=== PATIENT | male | born 1940 | race Caucasian/White ===

== ENCOUNTER 2024-11-09 19:49 | Emergency (ER) | payer MEDICARE, SELFPAY ==
--- OUTSIDE RECORDS SUMMARY | 2024-11-09 19:51 | XMS_ITS | Encounter Summary ---
Author Organization [facility] Healthcare Address [address] [place] [address] Care Team Providers Care Senior Sql Server Dba Name Role Phone Ramos Carranza MD Primary Care Provider [phone] Encounter Details Date Type Department Care Team (Late st Contact Info) Description 07/26/2024 Documentation [facility] [address] [place] [address] Heather Day Social History Tobacco Use Types Packs/Day Years Used Date Smoking Tobacco: Former Alcohol Use Standard Drinks/Week Comments Yes 0 (1 standard drink = 0.6 oz pur e alcohol) RARE PHQ-2 Answer Date Recorded PHQ-2 Total Score (If total score is 3 or more points, staff should administer the PHQ-9) 0 07/03/2024 Personal Safety Answer Date Recorded Have you ever been in or are you currently in a harmful physical or emotional relationship or is someone making you feel afraid or unsafe? 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
--- OUTSIDE RECORDS SUMMARY | 2024-11-09 19:52 | XMS_ITS | Clinical Summary ---
Author Organization [facility] Address [address] [place] [address] Care Team Providers Care Sheetrock Applicator Name Role Phone Ramos Carranza MD Primary Care Provider [phone] Allergies No known active allergies Medications herbal drugs (COLON HERBAL CLEANSER ORAL) daily. 5 Active omega 5-gpe-yly-fish oil (FISH OIL) 1,000 mg (120 mg-180 mg) capsule fish oil capsules 5 Active raNITIdine (ZANTAC) 150 mg tablet TAKE 1 TABLET BY MOUTH ONCE A DAY 5 Active cholecalciferol (VITAMIN D3) 1,000 unit capsule 1,000 IU's daily 5 Active b complex vitamins tablet Take by mouth. Active cetirizine (ZyrTEC) 10 mg tablet Take 1 tablet (10 mg total) by mouth Active omega-3 fatty acids (LOVAZA) 1 gram capsule Take 1 capsule (1,000 mg total) by mouth Active omeprazole (PriLOSEC) 20 mg capsule Take 1 capsule (20 mg total) by mouth 0 Active selenium 200 mcg tablet Take 1 tablet (200 mcg total) by mouth Active zinc sulfate (ZINC-220) 220 (50) mg capsule Take 1 tablet by mouth. Active cyanocobalamin (Vitamin B-12) 1,000 mcg tabletIndications: Prevention of Vitamin B12 Deficiency Take 1 tablet (1,000 mcg total) by mouth daily 30 tablet 11 1 Active calcium carbonate (OS-DAYLIN) 750 mg (300 mg of elemental calcium) tablet,chewable Take by mouth daily as needed Active fexofenadine (MARK) 180 mg tablet Take 1 tablet (180 mg total) by mouth daily Active multivitamin tablet Take 1 tablet by mouth daily Active potassium 99 mg tablet Take by mouth Active senna (SENOKOT) 8.6 mg tablet Take 1 tablet by mouth 2 (two) times a day Active vitamin E (vitamin E) 400 unit capsule Take 1 capsule (400 Units total) by mouth daily Active tamsulosin (FLOMAX) 0.4 mg extended release capsuleIndications :Benign prostatic hyperplasia with lower urinary tract symptoms, symptom details unspecified Take 1 capsule (0.4 mg total) by mouth daily 90 capsule 2 3 Active carbidopa-levodopa (SINEMET) 25-100 mg per tabletIndications: Parkinson's disease (HCC) Take 1 tablet by mouth once daily 90 tablet 3 4 Active carbidopa-levodopa CR (SINEMET CR) 25-100 mg per CR tablet Take 1 tablet by mouth nightly 90 tablet 3 4 Active acetaminophen 500 mg capsuleIndications :Pain Take 2 capsules (1,000 mg total) by mouth every 6 (six) hours 4 Active gabapentin (NEURONTIN) 300 mg capsule Take 1 capsule (300 mg total) by mouth 2 (two) times a day 4 07/26/20 25 Active methocarbamoL (ROBAXIN) 750 mg tablet Take 1 tablet (750 mg total) by mouth 3 (three) times a day 4 Active lidocaine (ASPERCREME) 4 % adhesive patch,medicated Place 1 patch on the skin daily 4 Active oxyCODONE (ROXICODONE) 5 mg immediate release tabletIndications: Pain Take 0.5 tablets (2.5 mg total) by mouth every 4 (four) hours as needed for pain 4 Active carvediloL (COREG) 3.125 mg tabletIndications: Chronic systolic congestive heart failure (HCC) Take 1 tablet (3.125 mg total) by mouth 2 (two) times a day with meals 120 tablet 2 4 02/14/20 25 Active spironolactone (ALDACTONE) 25 mg tablet Take 1 tablet (25 mg total) by mouth daily 60 tablet 2 4 02/14/20 25 Active blood-glucose meter miscIndications:Un controlled type 2 diabetes mellitus with hyperglycemia (HCC) Use to monitor blood sugars as directed twice daily 1 each 4 Active lancets 33 gauge miscIndications:Un controlled type 2 diabetes mellitus with hyperglycemia (HCC) Use as directed twice daily 200 each 4 Active blood glucose diagnostic (glucose blood) stripIndications:U ncontrolled type 2 diabetes mellitus with hyperglycemia (HCC) Use as directed to check blood sugars twice daily 200 each 4 08/18/20 25 Active metFORMIN XR (GLUCOPHAGE XR) 500 mg 24 hr tabletIndications: Hypertension associated with diabetes (HCC) Take 1 tablet (500 mg total) by mouth 2 (two) times a day after breakfast and lunch 180 tablet 2 5 Active Active Problems Problem Noted Date Diagnosed Date Discharge planning issues 07/24/2024 Assessment & Plan (07/26/2024 12:36 PM WAXER): 07/24: pending syncope work up. Pain control, IS to 2L. Okay to transfer to the floor. Will need rehab when medically stable for discharge. Anticipate pt to be medically stable 07/25 vs 07/26 07/25 Holding discharge given ECHO results. Cardiology consulted. 07/26 Patient is medically stable for discharge, SW/CM updated. Discharge pending facility bed availability. Transferring to [facility] today. Treatment plan note [x] Fracture of multiple ribs of left side 4 Assessment & Plan (07/26/2024 12:32 PM WAXER): #L anterior 4-6 rib fractures - pulm hygiene, IS - pain control - PT/OT 07/26 Respiration unlabored, no oxygen, no SOB. Will follow up in [facility] with CXR- ordered at discharge They were given the decision to go to his PCP Dr. Carranza for evaluation and CXR instead of coming to [facility]. They were asked to call and cancel appointment if going to PCP. Peripheral neuropathy 07/22/2024 Assessment & Plan (07/22/2024 11:49 AM WAXER): Longstanding peripheral neuropathy, 2/2 poorly controlled diabetes BPH (benign prostatic hyperplasia) 07/22/2024 Assessment & Plan (07/25/2024 1:05 PM WAXER): - On flomax at home, dc'd - Started on terazosin 07/25 voiding without difficulty. Nasal bone fracture 07/22/2024 Assessment & Plan (07/25/2024 12:58 PM WAXER): - Minimally displaced fx of the nasal bones - ENT consulted --- Elevate HOB --- Nasal precautions ENT final recommendations: Seen for a orbital floor fracture. For two weeks: - Do not perform any heavy lifting (>10 lbs), and do not strain. Use stool softeners as needed. You may be prescribed these or obtain these over the counter at your local pharmacy. - Do NOT blow your nose. You may use nasal saline spray or ocean spray as needed. - Sneeze with your mouth open - Use tylenol 650 mg every 6 hours to help with pain. You can alternate between tylenol and ibuprofen if you need additional pain control Questions or concerns, [facility]: Call [phone] to make an appointment. Orbital floor fracture 07/22/2024 Assessment & Plan (07/25/2024 1:01 PM WAXER): - Ophtho to schedule patient for follow up in clinic - Schedulers aware; They will reach out to him after discharge to schedule an appointment. Fall, initial encounter 07/21/2024 Assessment & Plan (07/25/2024 1:04 PM WAXER): Has a history of multiple falls in the past. - Syncopal workup given unclear mechanism --- OSVS negative 07/24 --- TTE See above, LVEF 20% and markedly dilated LV with LVH --- Carotid Duplex negative CKD (chronic kidney disease) stage 3, GFR 30-59 ml/min 12/01/2023 Assessment & Plan (07/25/2024 1:05 PM WAXER): Cr 1.01 on arrival to ED - Baseline Cr 0.9 to 1.1 - 07/23: 1.14 07/25 sCr 1.0- baseline Dystrophia unguium 05/08/2019 Abnormal gait 02/28/2019 Heartburn 02/27/2019 Seasonal allergies 02/27/2019 Great toe pain 12/29/2017 Pain and swelling of ankle 12/29/2017 Venous insufficiency 12/06/2017 Chronic constipation 09/06/2017 Assessment & Plan (07/22/2024 12:01 PM WAXER): Home senna resumed Tendon injury 04/23/2017 Fall in home 04/21/2017 Pain in the shoulder 04/21/2017 Encounter for long-term (cur rent) use of high-risk medication 02/26/2016 History of total knee replacement 09/11/2015 Benign colonic polyp 09/10/2015 Colon cancer screening 06/25/2015 Gastroesophageal reflux disease 06/25/2015 HTN (hypertension), benign 06/25/2015 Assessment & Plan (07/26/2024 12:30 PM WAXER): - Home medications: irbesartan 150 mg, resumed -SBP < 100, placed back on hold ECHO: Markedly dilated LV with eccentric LV hypertrophy. LVEF visually estimated 20% with akinetic apical segments, inferoseptal, inferior strong. Normal RV systolic function. Normal LA. No significant valve disease. Unable to estimate PASP due to lack of adequate TR jet. Normal RA pressure. 07/25 Cardiology consulted for decreased EF. No prior ECHO's and no Cardiology prior to this admission. Given multiple syncopal falls Cardiology will make recommendations. Cardiology Recommendations: Patient has reduction in LVEF, however, GDMT would pose risks in this patient who is already mildly hypotensive with numerous falls at home. We have spoken to estiven Dominguez and discussed the risks of starting this medication. We will discuss with patient's ship surveyor (Dr. Ramos Carranza) who is also his PCP about a gradual introduction of GDMT/ischemic evaluation if patient attains recovery in terms of hypotension and falls. Recommendations: - Agree with holding irbesartan on discharge - Please limit polypharmacy for patient - Agree with pursuing further rehabilitation-transferring to [facility] Nephrolithiasis 06/25/2015 Obstructive sleep apnea syndrome 06/25/2015 Osteoarthritis 06/25/2015 Parkinsonism 06/25/2015 Assessment & Plan (07/22/2024 11:50 AM WAXER): - Home sinemet continued Peripheral nerve disease 06/25/2015 Restless legs syndrome (RLS) 06/25/2015 Spinal stenosis 06/25/2015 Chronic low back pain 05/14/2010 Overview (02/28/2018): Overview: Hyperlipidemia 05/14/2010 Resolved Problems Problem Noted Date Diagnosed Date Resolved Date Facial fracture 07/22/2024 07/22/2024 Encounters Date Type Department Care Team Description 09/29/2024 10:30 AM WAXER Office Visit [address] [phone] Ramos Carranza MD Essential hypertension (Primary Dx); Venous insufficiency; Benign prostatic hyperplasia, unspecified whether lower urinary tract symptoms present; History of total left knee replacement; Type 2 diabetes mellitus with diabetic nephropathy, without long-term current use of insulin (HCC); Hypertension associated with diabetes (HCC) 09/06/[address] [phone] Ramos Carranza MD Med rf WILMA (Gabapentin) 08/17/2024 9:30 AM WAXER Office Visit [address] [phone] Ramos Carranza MD Chronic systolic congestive heart failure (HCC) (Primary Dx); Need for pneumococcal vaccination; Uncontrolled type 2 diabetes mellitus with hyperglycemia (HCC); Elevated glucose 08/17/[address] [phone] Ramos Carranza MD Med rf WILMA (Glucometer) 08/16/[address] [place] [phone] Ramos Carranza MD rqst to elsie JOHNSON from Last 3 Months Immunizations Immunization Administration Dates Next Due Influenza, Quadrivalent, Hig h Dose, Preservative Free, Intrr 04/27/2020 Influenza, Trivalent, High D ose, Split, Preservative Free, Intramuscular 05/29/2019,05/17/2018,07/06/2017,09/08 Influenza, Trivalent, IM (MDV) 06/01/2016 Influenza, Unspecified 05/30/2024,05/17/2018 Pneumococcal Conjugate Pcv20 08/17/2024 Pneumococcal Polysaccharide PPV23 06/25/2015,05/2007 Tdap 07/21/2024 Surgical History Surgery Date Site/Laterality Comments KNEE SURGERY Medical History Medical History Date Comments Arthritis Gastric reflux Headache Kidney stone Peripheral neuropathy Scoliosis Sleep apnea Family History Medical History Relation Name Comments Cancer Brother Diabetes Brother Heart disease Brother Migraines Daughter Family history of migraine headaches - (Added by TW Conv) Diabetes Sister Relation Name Status Comments Brother Daughter Sister Social History Tobacco Use Types Packs/Day Years Used Date Smoking Tobacco: Former Tobacco Cessation:Counseling Given: Not Answered Alcohol Use Standard Drinks/Week Comments Yes 0 [...] on file Legal Sex Male 11:08 PM WAXER Gender Identity Male 05/03/2024 2:56 PM CDT Sexual Orientation Not on file Obstetrics History Last Filed Vital Signs Vital Sign Reading Time Taken Comments Blood Pressure 90/60 09/29/2024 10:17 AM WAXER Pulse 68 09/29/2024 10:17 AM WAXER Temperature 36.4 C (97.6 F) 08/17/2024 9:32 AM WAXER Respiratory Rate 16 07/26/2024 4:09 PM WAXER Oxygen Saturation 98% 09/29/2024 10:17 AM WAXER Inhaled Oxygen Concentration - - Weight 86.6 kg (191 lb) 09/29/2024 10:17 AM WAXER Height 179.1 cm (5' 10.5 ) 09/29/2024 10:17 AM C Body Mass Index 27.02 09/29/2024 10:17 AM WAXER Plan of Treatment Health Maintenance Due Date Last Done Comments Albumin Creatinine Ratio, Urine 1938 Dilated Eye Exam 1940 Foot Exam 1940 Hepatitis B Screening 02/20/1956 Zoster Vaccine (1 of 2) 02/20/1988 Hemoglobin A1C 02/15/2025 08/17/2024, 11/2023, 03/14/2024, Additional history exists Depression Screening 07/03/2025 07/03/2024, 06/30/20 23 Lipid Panel 07/03/2025 07/03/2024, 08/2022, 12/10/2016, Additional history exists Well Visit 65+ 07/03/2025 07/03/2024, 06/30/2023 Fall Risk Assessment 07/26/2025 07/26/2024, 07/03/2024, 06/30/2023 eGFR 08/07/2025 08/07/2024, 09/2023, 07/28/2024, Additional history exists DTaP/Tdap/Td Vaccine (2 - Td or Tdap) 07/21/2034 07/21/2024 Influenza Vaccine Completed 05/30/2024, , 05/29/2019, Additional history exists Pneumococcal vaccine 65+ Completed 024, 06/25/2015, 12/07/2006 Procedures Procedure Name Priority Date/Time Associated Diagnosis Comments POCT GLUCOSE Routine 08/17/2024 10:35 AM WAXER Elevated glucose POCT HEMOGLOBIN A1C Routine 08/17/2024 1 0:35 AM WAXER Uncontrolled type 2 diabetes mellitus with hyperglycemia (HCC) EGFR Routine 08/07/2024 4:19 PM WAXER LIPID PANEL Routine 07/03/2024 11:50 AM WAXER Hypertension associated with diabetes (HCC) from Last 3 Months or Most Recently Relevant to Health Maintenance Results * POCT hemoglobin A1c (08/17/2024 10:35 AM WAXER) Hemoglobin A1C, POC 7.3 4.0 - 5.6 % Blood 08/17/2024 10:3 5 AM WAXER Ramos Carranza MD POINT OF CARE TEST ORDERABLE S Final Result * POCT glucose (08/17/2024 10:35 AM WAXER) Glucose Blood, POC 120 mg/dL Blood 08/17/2024 10:3 5 AM WAXER Ramos Carranza MD POINT OF CARE TEST ORDERABLE S Final Result * eGFR (08/07/2024 4:19 PM WAXER) eGFR 65 >=60 mL/min/1. 73 m2 [facility] Comment: Interpretive Data Reference Interval Normal >/= 90 mL/min/1.73m2 Mildly decreased* 60 - 89 mL/min/1.73m2 Mildly to moderately decreased 45 - 59 mL/min/1.73m2 Moderately to severely decreased 30 - 44 mL/min/1.73m2 Severely decreased 15 - 29 mL/min/1.73m2 Kidney Failure < 15 mL/min/1.73m2 *Relative to young adult level Estimated glomerular filtration rate is determined by the 2020 CKD-EPI equation recommended by the National Kidney Foundation (A Unifying Approach to GFR Estimation: Recommendations of the NKF-ASK Task Force on Reassessing the Inclusion of Race in Diagnosing Kidney Disease, JASN 202). The CKD-EPI equation should not be used for patients with unstable renal function and has not been validated in children and those over 70. Current interpretive data was last reviewed 2021. Blood 08/07/2024 4:19 PM WAXER 08/07/2024 4:20 PM WAXER Jorge Rodríguez Jr., MD LAB BLOOD ORDERABLES Final Result [facility] [address] Department [place] [address] * Lipid panel (07/03/2024 11:50 AM WAXER) Cholesterol 179 30 - 199 mg/dL Comment: Interpretive Data Ages < or = 19 years Acceptable: <170 mg/dL Borderline high: 170-199 mg/dL High: >or= 200 mg/dL Ages > or = 20 years Desirable: <200 mg/dL Borderline high: 200-239 mg/dL High: >or= 240 mg/dL Literature References: 1. Expert Panel on Integrated Guidelines for Cardiovascular Health and Risk Reduction in Children and Adolescents. Pediatrics 2011;128:S213 2. NCEP Expert Panel. Circulation 2004;110:227 Current Interpretive Data was last revised on 2018. Triglycerides 95 <=149 mg/dL [facility] Comment: Interpretive Data Ages < or = 9 years Acceptable: <75 mg/dL Borderline high: 75-99 mg/dL High: >or= 100 mg/dL Ages 10 to 20 years Acceptable: <90 mg/dL Borderline high: 90-129 mg/dL High: >or= 130 mg/dL Ages > or = 20 years Desirable: <150 mg/dL Borderline high: 150-199 mg/dL High: 200-499 mg/dL Very high: >or= 499 mg/dL Literature References: 1. Expert Panel on Integrated Guidelines for Cardiovascular Health and Risk Reduction in Children and Adolescents. Pediatrics 2011;128:S213 2. NCEP Expert Panel. Circulation 2004;110:227 Current Interpretive Data was last revised on 2018. HDL 50 >=40 mg/dL [facility] Comment: Interpretive Data Ages < or = 19 years Acceptable: >45 mg/dL Borderline low: 40-45 mg/dL Low: <40 mg/dL Ages > or = 20 years Desirable: >or= 60 mg/dL Low: <40 mg/dL Literature References: 1. Expert Panel on Integrated Guidelines for Cardiovascular Health and Risk Reduction in Children and Adolescents. Pediatrics 2011;128:S213 2. NCEP Expert Panel. Circulation 2004;110:227 Current Interpretive Data was last revised on 2018. LDL, calculated 112 <=129 mg/dL [facility] Comment: Interpretive Data Ages < or = 19 years Acceptable: <110 mg/dL Borderline high: 110-129 mg/dL High: >or= 130 mg/dL Ages > or = 20 years Optimal: <100 mg/dL Near optimal: 100-129 mg/dL Borderline high: 130-159 mg/dL High: >160 mg/dL Calculated using the Galileo LDL-C estimating equation. This equation was implemented on 2024. Prior to this date LDL-C was estimated using the Friedewald equation. Literature References: 1. Expert Panel on Integrated Guidelines for Cardiovascular Health and Risk Reduction in Children and Adolescents. Pediatrics 2011;128:S213 2. NCEP Expert Panel. Circulation 2004;110:227 3. Galileo Rothman et al. NANCY Cardiol. 2019December 28;5(5):540-548. doi: 10.1001/[email or web address].2020.0013 Current Interpretive Data was last revised on 2024. Non-HDL Cholesterol 129 mg/dL [facility] Comment: Interpretive Data Ages < or = 19 years Acceptable: <120 mg/dL Borderline high: 120-144 mg/dL High: >145 mg/dL Ages > or = 20 years When triglycerides are >200 mg/dL, Non-HDL cholesterol is a secondary target of therapy with treatment goals that are 30 mg/dL greater than the LDL cholesterol target. Literature References: 1. Expert Panel on Integrated Guidelines for Cardiovascular Health and Risk Reduction in Children and Adolescents. Pediatrics 2011;128:S213 2. NCEP Expert Panel. Circulation 2004;110:227 Current Interpretive Data was last revised on 2018. Chol/HDL ratio 4 [facility] Blood 07/03/2024 11:5 0 AM WAXER 07/03/2024 3:12 PM WAXER us Ramos Carranza MD LAB BLOOD ORDERABLES Final R esult [facility] Department [place] [address] from Last 3 Months or Most Recently Relevant to Health Maintenance Insurance [facility] [place] [id number] COMMERCIAL GENERIC MEDICARE MEDICARE COMMERCIAL GENERIC MEDICARE COMMERCIAL GENERIC MEDICARE [employer] MEDICARE TRUST Advance Directives For more information, please contact: [phone] * Full Code (Latest Code Status on File) Date Activated Date Inactivated Comments 07/22/2024 2:00 AM 07/27/2024 12:57 AM Care Teams Sheetrock Applicator Relationship Specialty Start Date End Date Ramos Carranza MD [facility] [address] Jose M DELUNA [address] [place] [id number] PCP - General 12/10/16
--- OUTSIDE RECORDS SUMMARY | 2024-11-09 19:52 | XMS_ITS | Patient Health Summary ---
Author Organization [facility] Address [address] [place] [address] Care Team Providers Care Work Adjustment Instructor Name Role Phone Damaso Barrow DO Primary Care Provider [phone] Note from [facility],non-owned Affiliates and Associated Physician Practices is amultiple site organization consisting of ambulatory clinics and hospital sitesin [place], [place] and [place]. This disclosure is being madepursuant to the Care Everywhere program and may not contain all information available regarding this patient. Last updated 18.[facility] Allergies No known active allergies Medications * Be aware that medications may not be up to date on this document. Alwaysverify current medications with the patient. * fish oil/omega-3 fatty acids (FISH OIL) 1000 MG capsule Take 1000 mg by mouth 3 times daily with meals. * B COMPLEX PO Take by mouth. * cetirizine (ZYRTEC) 10 MG tablet Take 10 mg by mouth daily. * Selenium 200 MCG TABS Take 1 Tab by mouth daily. * Zinc 50 MG CAPS Take 1 Tab by mouth daily. * gabapentin (NEURONTIN) 300 MG capsule(Started 05/08/2010) Take by mouth. Take 2 capsules po BID. 3 refills left * lisinopril (PRINIVIL; ZESTRIL) 10 MG tablet(Started 05/08/2010) Take 1 Tab by mouth daily. 3 refills left * omeprazole (PRILOSEC) 20 MG capsule(Started 05/08/2010) Take 1 Cap by mouth daily before breakfast. 3 refills left * carbidopa-levodopa (SINEMET) 25-100 MG tablet(Started 05/08/2010) Take 1 Tab by mouth at bedtime. 3 refills left Active Problems Problem Noted Date Diagnosed Date HTN (hypertension), benign 05/14/2010 Hyperlipidemia 05/14/2010 Restless legs syndrome (RLS) 05/14/2010 Spinal stenosis 05/14/2010 Chronic low back pain 05/14/2010 Immunizations * PNEUMOCOCCAL PPSV23(Given 12/07/2006) Social History Tobacco Use Types Packs/Day Years Used Date Smoking Tobacco: Never Alcohol Use Standard Drinks/Week Comments No 0 (1 standard drink = 0.6 oz pur e alcohol) Sex and Gender Information Value Date Recorded Sex Assigned at Not on file Gender Identity Not on file Sexual Orientation Not on file Last Filed Vital Signs Vital Sign Reading Time Taken Comments Blood Pressure 144/86 11/06/2010 11:31 AM ASSISTED LIVING COORDINATOR Pulse 64 11/06/2010 11:31 AM ASSISTED LIVING COORDINATOR Temperature 36.3 C (97.4 F) 11/07/2009 11:03 AM ASSISTED LIVING COORDINATOR Respiratory Rate 12 11/06/2010 11:31 AM ASSISTED LIVING COORDINATOR Oxygen Saturation - - Inhaled Oxygen Concentration - - Weight 95.3 kg (210 lb) 11/06/2010 11:31 AM ASSISTED LIVING COORDINATOR Height 180.3 cm (5' 11 ) 11/06/2010 11:31 AM ASSISTED LIVING COORDINATOR Body Mass Index 29.29 11/06/2010 11:31 AM ASSISTED LIVING COORDINATOR Procedures * VITAMIN D 25-HYDROXY(Performed 11/06/2010) Performed for Vitamin D deficiency * LIPID PROFILE(Performed 11/06/2010) Performed for HTN (hypertension), benign * GENERAL HEALTH PANEL(Performed 11/06/2010) Performed for HTN (hypertension), benign * COMPREHENSIVE METABOLIC PANEL(Performed 05/08/2010) Performed for HTN (Hypertension), Benign * VITAMIN D 25-HYDROXY(Performed 05/08/2010) Performed for Vitamin D Deficiency * LIPID PROFILE(Performed 05/08/2010) Performed for Hyperlipidemia * VITAMIN D 25-HYDROXY(Performed 05/08/2010) Performed for Vitamin D Deficiency * LIPID PROFILE(Performed 11/07/2009) Performed for Health Maintenance Examination * VITAMIN D 25-HYDROXY(Performed 11/07/2009) Performed for Health Maintenance Examination * TSH(Performed 11/07/2009) Performed for Health Maintenance Examination * COMPREHENSIVE METABOLIC PANEL(Performed 11/07/2009) Performed for Health Maintenance Examination * CBC W AUTO DIFFERENTIAL(Performed 11/07/2009) Performed for Health Maintenance Examination * BASIC METABOLIC PANEL (CALCIUM TOTAL)(Performed 09/04/2008) Results * VITAMIN D 25-HYDROXY (11/06/2010 11:53 AM ASSISTED LIVING COORDINATOR) Only the most recent of4 resultswithin the time period is included. Vitamin D, 25 Hydroxy 37.4 32.0 - 100.0 ng/mL [facility] INSURANCE BILL Comment: Recent studies consider the lower limit of 32.0 ng/mL to be a threshold for optimal health. Clarence SINCLAIR. J Nutr. 2004;135(2):317-22. BLOOD SPECIMEN / Unknown 11/06/2010 11:53 AM ASSISTED LIVING COORDINATOR 11/06/2010 6:33 PM ASSISTED LIVING COORDINATOR Narrative Resulting Agency Comment [facility] [address] [id number] Damaso Barrow DO LAB - CHEMISTRY LOUIE FRANCISCO [facility] INSURANCE BILL * (ABNORMAL) GENERAL HEALTH PANEL (11/06/2010 11:52 AM ASSISTED LIVING COORDINATOR) Glucose 113(H) 65 - 99 mg/dL [facility] INSURANCE BILL BUN 21 8 - 27 mg/dL [facility] INSURANCE BILL Creatinine 1.09 0.76 - 1.27 mg/dL [facility] INSURANCE BILL eGFR by MDRD >59 >59 mL/min/1. 73 [facility] INSURANCE BILL eGFR by MDRD >59 >59 mL/min/1. 73 [facility] INSURANCE BILL Comment: Note: Persistent reduction for 3 months or more in an eGFR <60 mL/min/1.73 m2 defines CKD. Patients with eGFR values >/=60 mL/min/1.73 m2 may also have CKD if evidence of persistent proteinuria is present. Additional information may be found at www.kdoqi.org. BUN/Creatinine Ratio [facility] INSURANCE BILL Sodium 140 135 - 145 mmol/L [facility] INSURANCE BILL Potassium 4.5 3.5 - 5.2 mmol/L [facility] INSURANCE BILL Chloride 102 97 - 108 mmol/L [facility] INSURANCE BILL CO2 25 20 - 32 mmol/L [facility] INSURANCE BILL Calcium 9.5 8.6 - 10.2 mg/dL [facility] INSURANCE BILL Protein Total 7.5 6.0 - 8.5 g/dL [facility] INSURANCE BILL Albumin 4.6 3.5 - 4.8 g/dL [facility] INSURANCE BILL Globulin Total 2.9 1.5 - 4.5 g/dL [facility] INSURANCE BILL Albumin/Globulin Ratio 1.6 1.1 - 2.5 [facility] INSURANCE BILL Bilirubin Total 0.7 0.0 - 1.2 mg/dL [facility] INSURANCE BILL Alkaline Phosphatase 79 25 - 160 IU/L [facility] INSURANCE BILL AST 19 0 - 40 IU/L [facility] INSURANCE BILL ALT 19 0 - 55 IU/L [facility] INSURANCE BILL TSH 1.140 0.450 - 4.500 uIU/mL [facility] INSURANCE BILL WBC 6.5 4.0 - 10.5 x10E3/uL [facility] INSURANCE BILL RBC 4.81 4.10 - 5.60 x10E6/uL [facility] INSURANCE BILL Hemoglobin 15.7 12.5 - 17.0 g/dL [facility] INSURANCE BILL Hematocrit 45.5 36.0 - 50.0 % [facility] INSURANCE BILL MCV 95 80 - 98 fL [facility] INSURANCE BILL MCH 32.6 27.0 - 34.0 pg [facility] INSURANCE BILL MCHC 34.5 32.0 - 36.0 g/dL [facility] INSURANCE BILL RDW 13.4 11.7 - 15.0 % [facility] INSURANCE BILL Platelet Count 184 140 - 415 x10E3/uL [facility] INSURANCE BILL Granulocytes % 48 40 - 74 % [facility] INSURANCE BILL Lymphocytes % 38 14 - 46 % [facility] INSURANCE BILL Monocytes % 12 4 - 13 % [facility] INSURANCE BILL Eosinophils % 2 0 - 7 % [facility] INSURANCE BILL Basophils % 0 0 - 3 % [facility] INSURANCE BILL Immature Cells NOT NEEDED [facility] INSURANCE BILL Comment:Ancillary determined the test is not needed Granulocytes Absolute 3.1 1.8 - 7.8 x10E3/uL [facility] INSURANCE BILL Lymphocytes Absolute 2.5 0.7 - 4.5 x10E3/uL [facility] INSURANCE BILL Monocytes Absolute 0.8 0.1 - 1.0 x10E3/uL [facility] INSURANCE BILL Eosinophils Absolute 0.1 0.0 - 0.4 x10E3/uL [facility] INSURANCE BILL Basophils Absolute 0.0 0.0 - 0.2 x10E3/uL [facility] INSURANCE BILL Immature Granulocytes 0 0 - 1 % [facility] INSURANCE BILL Immature Granulocytes Absolute 0.0 0.0 - 0.1 x10E3/uL [facility] INSURANCE BILL nRBC NOT NEEDED [facility] INSURANCE BILL Comment:Ancillary determined the test is not needed Comment Hematology NOT NEEDED [facility] INSURANCE BILL Comment:Ancillary determined the test is not needed BLOOD SPECIMEN / Unknown 11/06/2010 11:52 AM ASSISTED LIVING COORDINATOR 11/06/2010 6:43 PM ASSISTED LIVING COORDINATOR Narrative Resulting Agency Comment [facility] [address] [facility] [phone] [facility] LAB - CHEMISTRY [facility] Performing Organization Address [facility] de Phone Number [facility] INSURANCE BILL * (ABNORMAL) LIPID PROFILE (11/06/2010 11:52 AM ASSISTED LIVING COORDINATOR) Only the most recent of3 resultswithin the time period is included. Cholesterol 221(H) 100 - 199 mg/dL [facility] INSURANCE BILL Triglycerides 165(H) 0 - 149 mg/dL [facility] INSURANCE BILL HDL Cholesterol 49 >39 mg/dL [facility] INSURANCE BILL Comment: According to ATP-III Guidelines, HDL-C >59 mg/dL is considered a negative risk factor for CHD. VLDL Calculated 33 5 - 40 mg/dL [facility] INSURANCE BILL LDL Calculated 139(H) 0 - 99 mg/dL [facility] INSURANCE BILL BLOOD SPECIMEN / Unknown 11/06/2010 11:52 AM ASSISTED LIVING COORDINATOR 11/06/2010 6:43 PM ASSISTED LIVING COORDINATOR Narrative Resulting Agency Comment [facility] [address] [phone] [facility] DO LAB - CHEMISTRY [employer] Performing Organization Address [facility] Co de Phone Number [facility] INSURANCE BILL * COMPREHENSIVE METABOLIC PANEL (05/08/2010 12:05 PM CDT) Only the most recent of2 resultswithin the time period is included. Glucose 92 65 - 99 mg/dL [facility] INSURANCE BILL BUN 23 5 - 26 mg/dL [facility] INSURANCE BILL Creatinine 1.01 0.76 - 1.27 mg/dL [facility] INSURANCE BILL eGFR by MDRD >59 >59 mL/min/1.7 3 [facility] INSURANCE BILL eGFR by MDRD >59 >59 mL/min/1.7 3 [facility] INSURANCE BILL Comment: Note: Persistent reduction for 3 months or more in an eGFR <60 mL/min/1.73 m2 defines CKD. Patients with eGFR values >/=60 mL/min/1.73 m2 may also have CKD if evidence of persistent proteinuria is present. Additional information may be found at www.kdoqi.org. BUN/Creatinine Ratio 23 8 - 27 [facility] INSURANCE BILL Sodium 137 135 - 145 mmol/L [facility] INSURANCE BILL Potassium 4.7 3.5 - 5.2 mmol/L [facility] INSURANCE BILL Chloride 100 97 - 108 mmol/L [facility] INSURANCE BILL CO2 27 20 - 32 mmol/L [facility] INSURANCE BILL Calcium 9.4 8.6 - 10.2 mg/dL [facility] INSURANCE BILL Protein Total 7.3 6.0 - 8.5 g/dL [facility] INSURANCE BILL Albumin 4.5 3.5 - 4.8 g/dL [facility] INSURANCE BILL Globulin Total 2.8 1.5 - 4.5 g/dL [facility] INSURANCE BILL Albumin/Globulin Ratio 1.6 1.1 - 2.5 [facility] INSURANCE BILL Bilirubin Total 0.4 0.0 - 1.2 mg/dL [facility] INSURANCE BILL Alkaline Phosphatase 72 25 - 160 IU/L [facility] INSURANCE BILL AST 20 0 - 40 IU/L [facility] INSURANCE BILL ALT 17 0 - 55 IU/L [facility] INSURANCE BILL BLOOD SPECIMEN / Unknown 05/08/2010 12:05 PM CDT 05/08/2010 5:37 PM CDT Narrative Resulting Agency Comment [facility] [address] [id number] Damaso Barrow DO LAB - CHEMISTRY LOUIE FRANCISCO [facility] INSURANCE BILL * (ABNORMAL) CBC W AUTO DIFFERENTIAL (11/07/2009 11:49 AM ASSISTED LIVING COORDINATOR) WBC 8.0 4.0 - 10.5 x10E3/uL [facility] INSURANCE BILL RBC 4.54 4.10 - 5.60 x10E6/uL [facility] INSURANCE BILL Hemoglobin 14.9 12.5 - 17.0 g/dL [facility] INSURANCE BILL Hematocrit 44.1 36.0 - 50.0 % [facility] INSURANCE BILL MCV 97 80 - 98 fL [facility] INSURANCE BILL MCH 32.8 27.0 - 34.0 pg [facility] INSURANCE BILL MCHC 33.9 32.0 - 36.0 g/dL [facility] INSURANCE BILL RDW 13.9 11.7 - 15.0 % [facility] INSURANCE BILL Platelet Count 137(L) 140 - 415 x10E3/uL [facility] INSURANCE BILL Granulocytes % 54 40 - 74 % [facility] INSURANCE BILL Lymphocytes % 35 14 - 46 % [facility] INSURANCE BILL Monocytes % 9 4 - 13 % [facility] INSURANCE BILL Eosinophils % 2 0 - 7 % [facility] INSURANCE BILL Basophils % 0 0 - 3 % [facility] INSURANCE BILL Immature Cells NOT AVAIL. [facility] INSURANCE BILL Granulocytes Absolute 4.3 1.8 - 7.8 x10E3/uL [facility] INSURANCE BILL Lymphocytes Absolute 2.8 0.7 - 4.5 x10E3/uL [facility] INSURANCE BILL Monocytes Absolute 0.7 0.1 - 1.0 x10E3/uL [facility] INSURANCE BILL Eosinophils Absolute 0.2 0.0 - 0.4 x10E3/uL [facility] INSURANCE BILL Basophils Absolute 0.0 0.0 - 0.2 x10E3/uL [facility] INSURANCE BILL Immature Granulocytes NOT AVAIL. [facility] INSURANCE BILL Immature Granulocytes Absolute NOT AVAIL. [facility] INSURANCE BILL nRBC NOT AVAIL. [facility] INSURANCE BILL Comment Hematology NOT AVAIL. [facility] INSURANCE BILL BLOOD SPECIMEN / Unknown 11/07/2009 11:49 AM ASSISTED LIVING COORDINATOR 11/07/2009 6:14 PM ASSISTED LIVING COORDINATOR Narrative [facility] INSURANCE BILL - 11/08/2009 8:31 AM ASSISTED LIVING COORDINATOR Additional Result Information IMMATURE CELLS ([facility]): RESULT NOT AVAILABLE IMMATURE GRANULOCYTES ([facility]): RESULT NOT AVAILABLE IMMATURE GRANS (ABS) ([facility]): RESULT NOT AVAILABLE NRBC ([facility]): RESULT NOT AVAILABLE HEMATOLOGY COMMENTS: BLOOD,URINE ([facility]): RESULT NOT AVAILABLE Resulting Agency Comment [facility] [address] [id number] Damaso Barrow DO LAB - HEMATOLOGY ORD ERABLES Performing Organization Address City/[facility]/ZIP Co de Phone Number [facility] INSURANCE BILL * TSH (11/07/2009 11:49 AM ASSISTED LIVING COORDINATOR) TSH 0.756 0.450 - 4.500 uIU/mL [facility] INSURANCE BILL BLOOD SPECIMEN / Unknown 11/07/2009 11:49 AM ASSISTED LIVING COORDINATOR 11/07/2009 6:14 PM ASSISTED LIVING COORDINATOR Narrative Resulting Agency Comment [facility] [address] [id number] Damaso Barrow DO LAB - CHEMISTRY ORDE RABLES Performing Organization Address City/[facility] Co de Phone Number [facility] INSURANCE BILL * (ABNORMAL) BASIC METABOLIC PANEL (CALCIUM TOTAL) (09/04/2008 12:08 PM ASSISTED LIVING COORDINATOR) Glucose 110(H) 65 - 99 mg/dL [facility] INSURANCE BILL BUN 17 5 - 26 mg/dL [facility] INSURANCE BILL Creatinine 0.80 0.76 - 1.27 mg/dL [facility] INSURANCE BILL eGFR by MDRD >59 >59 mL/min/1.7 3 [facility] INSURANCE BILL eGFR by MDRD >59 >59 mL/min/1.7 3 [facility] INSURANCE BILL Comment: Note: Persistent reduction for 3 months or more in an eGFR <60 mL/min/1.73 m2 defines CKD. Patients with eGFR values >/=60 mL/min/1.73 m2 may also have CKD if evidence of persistent proteinuria is present. Additional information may be found at www.kdoqi.org. BUN/Creatinine Ratio 21 8 - 27 [facility] INSURANCE BILL Sodium 138 135 - 145 mmol/L [facility] INSURANCE BILL Potassium 4.1 3.5 - 5.2 mmol/L [facility] INSURANCE BILL Chloride 100 97 - 108 mmol/L [facility] INSURANCE BILL CO2 28 20 - 32 mmol/L [facility] INSURANCE BILL Calcium 9.6 8.5 - 10.6 mg/dL [facility] INSURANCE BILL 09/04/2008 12:0 8 PM ASSISTED LIVING COORDINATOR 09/04/2008 6:41 PM ASSISTED LIVING COORDINATOR Narrative Resulting Agency Comment [facility] [address] [id number] Damaso Barrow DO LAB - CHEMISTRY LOUIE FRANCISCO [facility] INSURANCE BILL Care Teams Work Adjustment Instructor Relationship Specialty Start Date End Date Damaso Barrow DO [address] [place] [address] PCP - General 11/07/09
--- OUTSIDE RECORDS SUMMARY | 2024-11-09 19:52 | XMS_ITS | Encounter Summary ---
Author Organization [employer] Address [address] [place] [address] Care Team Providers Care Molasses Preparer Name Role Phone Ramos Carranza MD Primary Care Provider [phone] Encounter Details Date Type Department Care Team (Late st Contact Info) Description 05/12/2006 Outpatient Historical [facility] [employer] [facility] (Adt Cardiology-[facility]) [address] 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
--- OUTSIDE RECORDS SUMMARY | 2024-11-09 19:52 | XMS_ITS | Clinical Summary ---
Author Organization [facility] Address [address] [place] [address] Phone Care Team Providers Care Carpet Inspector Finished Name Role Phone Ramos Carranza MD Primary Care Provider [phone] Allergies No known active allergies Medications carbidopa-levod opa (SINEMET) 25-100 mg tablet Take 1 Tablet by mouth late in the day. Active sennosides (SENOKOT) 8.6 mg tablet Take 8.6 mg by mouth 2 times daily. Active raNITIdine (ZANTAC) 150 mg tablet Take 150 mg by mouth daily. Active VITAMIN B COMPLEX VIT C NO.4 (SUPER B COMPLEX + C ORAL) Take by mouth. Activ e potassium gluconate 595 mg (99 mg) Tablet Take by mouth. Activ e Potassium 99 mg Tablet Take by mouth. Activ e selenium 200 mcg Tablet Take 200 mcg by mouth. Active vitamin E 400 unit capsule Take 400 Units by mouth daily. Active Ywiby-0-UPO-EPA -Fish Oil (FISH OIL) 1,000 mg (120 mg-180 mg) Capsule Take by mouth. Activ e fexofenadine (MARK) 180 mg tablet Take 180 mg by mouth daily. Active OTHERIndication s:Arctic Bonnie Oil Provider please include Medication name, dose, route and frequency . Active cholecalciferol , vitamin D3, 1,000 unit Take by mouth. Acti ve calcium as carbonate (ANTACID EXT STR, CALCIUM CARB,) 750 mg (300 mg elemental) Tablet, Chewable Take by mouth 1 time daily as needed for Dyspepsia. Active OTHERIndication s:Healthy brain Vit Provider please include Medication name, dose, route and frequency . Active multivitamin (DAILY-FLAQUITA) tablet Take 1 Tablet by mouth daily. Active carbidopa-levod opa (SINEMET CR) 25-100 mg Controlled Release tablet Take 1 Tablet by mouth late in the day. Active HYDROcodone-kathleen taminophen (NORCO) 5-325 mg tablet Take 1 Tablet by mouth every 4 hours as needed for Moderate Pain. Max Daily Amount: 6 Tablets 20 Tablet 03/11/2017 12:57 PM CDT 7 Active cephALEXin (KEFLEX) 250 mg capsule Take 1 Capsule (250 mg) by mouth 3 times daily. 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 Gender Identity Not on file Sexual Orientation Not on file Last Filed Vital Signs Vital Sign Reading Time Taken Comments Blood Pressure 148/80 03/11/2017 12:22 PM CDT Pulse 60 03/11/2017 12:22 PM CDT Temperature 35.6 C (96.1 F) 03/11/2017 10:55 AM CDT Respiratory Rate 16 03/11/2017 12:22 PM CDT Oxygen Saturation 98% 03/11/2017 12:22 PM CDT Inhaled Oxygen Concentration - - Weight 91.2 kg (201 lb) 03/11/2017 6:10 AM CDT Height 180.3 cm (5' 11 ) 03/11/2017 6:10 AM CDT Body Mass Index 28.03 03/11/2017 6:10 AM CDT Plan of Treatment Health Maintenance Due Date Last Done Comments DTAP/TDAP/TD VACCINES (1 - Tdap) 1959 PNEUMOCOCCAL VACCINE 50+ YEARS (1 of 1 - PCV) 02/19/19 88 ZOSTER VACCINE (1 of 2) 02/20/1988 RSV VACCINE (60+ or ) (1 - 1-dose 75+ series) 2013 INFLUENZA VACCINE (#1) 2024 06/01/2016 Medical Devices Implanted Type Area Film Processing Shift Supervisor Device Identifier Shelf Expiration Date Model / Serial / Lot Stent Polaris Ultra [id number] - [id number] Implanted:Qty : 1 on 03/11/2017 by Jhonny Diaz MD at [facility] Stent Right: [employer]re[employer]DIRECTOR STAGE [id number] 12/18/2019 [id number] [place] [address] MEDICARE PART A AND B RX [employer] RX Member Subscriber Plan / Payer (Ef fective 2006-Present) Name:PrestonLakshmi Relation to Subscriber:Self Name:Sri Johnstonkaia William Payer ID:Not on file Group ID:[id number] Type:RX Medicare Part D Address: [facility] Advance Directives For more information, please contact: [phone] * Full Code (Latest Code Status on File) Date Activated Date Inactivated Comments 03/11/2017 7:21 AM 03/11/2017 2:24 PM Care Teams Carpet Inspector Finished Relationship Specialty Start Date End Date Ramos Carranza MD [address] [place] [address] PCP - General Interventional Cardiology 03/01/17
--- OUTSIDE RECORDS SUMMARY | 2024-11-09 19:52 | XMS_ITS | Referral Summary ---
Author Organization [facility] Address [address] [place] [address] Care Team Providers Care Appraisal Technician Name Role Phone Ramos Carranza MD Primary Care Provider [phone] Encounters Date Type Department Care Team Description 09/29/2024 10:30 AM SUPPLY CHAIN MANAGER Office Visit [address] [phone] Ramos Carranza MD Essential hypertension (Primary Dx); Venous insufficiency; Benign prostatic hyperplasia, unspecified whether lower urinary tract symptoms present; History of total left knee replacement; Type 2 diabetes mellitus with diabetic nephropathy, without long-term current use of insulin (HCC); Hypertension associated with diabetes (HCC) 09/06/[address] [phone] Ramos Carranza MD Med rf WILMA (Gabapentin) 08/17/[address] [phone] Ramos Carranza MD Med rf WILMA (Glucometer) 08/17/2024 9:30 AM SUPPLY CHAIN MANAGER Office Visit [address] [phone] Ramos Carranza MD Chronic systolic congestive heart failure (HCC) (Primary Dx); Need for pneumococcal vaccination; Uncontrolled type 2 diabetes mellitus with hyperglycemia (HCC); Elevated glucose 08/16/[address] [phone] Ramos Carranza MD rqst to s/w from Last 3 Months Allergies No known active allergies Medications herbal drugs (COLON HERBAL CLEANSER ORAL) daily. 5 Active omega 5-gmi-cgq-fish oil (FISH OIL) 1,000 mg (120 mg-180 [...] 07/24/2024 Assessment & Plan (07/26/2024 12:36 PM SUPPLY CHAIN MANAGER): 07/24: pending syncope work up. Pain control, IS to 2L. Okay to transfer to the floor. Will need rehab when medically stable for discharge. Anticipate pt to be medically stable 07/25 vs 07/26 07/25 Holding discharge given ECHO results. Cardiology consulted. 07/26 Patient is medically stable for discharge, SW/CM updated. Discharge pending facility bed availability. Transferring to [facility] today. Treatment plan note [x] Fracture of multiple ribs of left side Assessment & Plan (07/26/2024 12:32 PM SUPPLY CHAIN MANAGER): #L anterior 4-6 rib fractures - pulm hygiene, IS - pain control - PT/OT 07/26 Respiration unlabored, no oxygen, no SOB. Will follow up in [facility] with CXR- ordered at discharge They were given the decision to go to his PCP Dr. Carranza for evaluation and CXR instead of coming to [facility]. They were asked to call and cancel appointment if going to PCP. Peripheral neuropathy 07/22/2024 Assessment & Plan (07/22/2024 11:49 AM SUPPLY CHAIN MANAGER): Longstanding peripheral neuropathy, 2/2 poorly controlled diabetes BPH (benign prostatic hyperplasia) 07/22/2024 Assessment & Plan (07/25/2024 1:05 PM SUPPLY CHAIN MANAGER): - On flomax at home, dc'd - Started on terazosin 07/25 voiding without difficulty. Nasal bone fracture 07/22/2024 Assessment & Plan (07/25/2024 12:58 PM SUPPLY CHAIN MANAGER): - Minimally displaced fx of the nasal [...] or concerns, [facility]: Call [phone] to make an appointment. Orbital floor fracture 07/22/2024 Assessment & Plan (07/25/2024 1:01 PM SUPPLY CHAIN MANAGER): - Ophtho to schedule patient for follow up in clinic - Schedulers aware; They will reach out to him after discharge to schedule an appointment. Fall, initial encounter 07/21/2024 Assessment & Plan (07/25/2024 1:04 PM SUPPLY CHAIN MANAGER): Has a history of multiple falls in the past. - Syncopal workup given unclear mechanism --- OSVS negative 07/24 --- TTE See above, LVEF 20% and markedly dilated LV with LVH --- Carotid Duplex negative CKD (chronic kidney disease) stage 3, GFR 30-59 ml/min 12/01/2023 Assessment & Plan (07/25/2024 1:05 PM SUPPLY CHAIN MANAGER): Cr 1.01 on arrival to ED - Baseline Cr 0.9 to 1.1 - 07/23: 1.14 07/25 sCr 1.0- baseline Dystrophia unguium 05/08/2019 Abnormal gait 02/28/2019 Heartburn 02/27/2019 Seasonal allergies 02/27/2019 Great toe pain 12/29/2017 Pain and swelling of ankle 12/29/2017 Venous insufficiency 12/06/2017 Chronic constipation 09/06/2017 Assessment & Plan (07/22/2024 12:01 PM SUPPLY CHAIN MANAGER): Home senna resumed Tendon injury 04/23/2017 Fall in home 04/21/2017 Pain in the shoulder 04/21/2017 Encounter for long-term (cur rent) use of high-risk medication 02/26/2016 History of total knee replacement 09/11/2015 Benign colonic polyp 09/10/2015 Colon cancer screening 06/25/2015 Gastroesophageal reflux disease 06/25/2015 HTN (hypertension), benign 06/25/2015 Assessment & Plan (07/26/2024 12:30 PM SUPPLY CHAIN MANAGER): - Home medications: irbesartan 150 mg, resumed [...] this medication. We will discuss with patient's medical office supervisor (Dr. Ramos Carranza) who is also his PCP about a gradual introduction of GDMT/ischemic evaluation if patient attains recovery in terms of hypotension and falls. Recommendations: - Agree with holding irbesartan on discharge - Please limit polypharmacy for patient - Agree with pursuing further rehabilitation-transferring to [facility] Nephrolithiasis 06/25/2015 Obstructive sleep apnea syndrome 06/25/2015 Osteoarthritis 06/25/2015 Parkinsonism 06/25/2015 Assessment & Plan (07/22/2024 11:50 AM SUPPLY CHAIN MANAGER): - Home sinemet continued Peripheral nerve disease 06/25/2015 Restless legs syndrome (RLS) 06/25/2015 Spinal stenosis 06/25/2015 Chronic low back pain 05/14/2010 Overview (02/28/2018): Overview: Hyperlipidemia 05/14/2010 Resolved Problems Problem Noted Date Diagnosed Date Resolved Date Facial fracture 07/22/2024 07/22/2024 Immunizations Immunization Administration Dates Next Due Influenza, Quadrivalent, Hig h Dose, Preservative Free, Intrr 04/27/2020 Influenza, Trivalent, High D ose, Split, Preservative Free, Intramuscular 05/29/2019,05/17/2018,07/06/2017,09/08 Influenza, Trivalent, IM (MDV) 06/01/2016 Influenza, Unspecified 05/30/2024,05/17/2018 Pneumococcal Conjugate Pcv20 08/17/2024 Pneumococcal Polysaccharide PPV23 06/25/2015,05/2007 Tdap 07/21/2024 Social History Tobacco Use Types Packs/Day Years [...] on file Legal Sex Male 11:08 PM SUPPLY CHAIN MANAGER Gender Identity Male 05/03/2024 2:56 PM CDT Sexual Orientation Not on file Last Filed Vital Signs Vital Sign Reading Time Taken Comments Blood Pressure 90/60 09/29/2024 10:17 AM SUPPLY CHAIN MANAGER Pulse 68 09/29/2024 10:17 AM SUPPLY CHAIN MANAGER Temperature 36.4 C (97.6 F) 08/17/2024 9:32 AM SUPPLY CHAIN MANAGER Respiratory Rate 16 07/26/2024 4:09 PM SUPPLY CHAIN MANAGER Oxygen Saturation 98% 09/29/2024 10:17 AM SUPPLY CHAIN MANAGER Inhaled Oxygen Concentration - - Weight 86.6 kg (191 lb) 09/29/2024 10:17 AM SUPPLY CHAIN MANAGER Height 179.1 cm (5' 10.5 ) 09/29/2024 10:17 AM C Body Mass Index 27.02 09/29/2024 10:17 AM SUPPLY CHAIN MANAGER Plan of Treatment Not on file Procedures Procedure Name Priority Date/Time Associated Diagnosis Comments POCT GLUCOSE Routine 08/17/2024 10:35 AM SUPPLY CHAIN MANAGER Elevated glucose POCT HEMOGLOBIN A1C Routine 08/17/2024 1 0:35 AM SUPPLY CHAIN MANAGER Uncontrolled type 2 diabetes mellitus with hyperglycemia (HCC) EGFR Routine 08/07/2024 4:19 PM SUPPLY CHAIN MANAGER LIPID PANEL Routine 07/03/2024 11:50 AM SUPPLY CHAIN MANAGER Hypertension associated with diabetes (HCC) from Last 3 Months or Most Recently Relevant to Health Maintenance Results * POCT hemoglobin A1c (08/17/2024 10:35 AM SUPPLY CHAIN MANAGER) Hemoglobin A1C, POC 7.3 4.0 - 5.6 % Blood 08/17/2024 10:3 5 AM SUPPLY CHAIN MANAGER us Ramos Carranza MD POINT OF CARE TEST ORDERABLE S Final Result * POCT glucose (08/17/2024 10:35 AM SUPPLY CHAIN MANAGER) Glucose Blood, POC 120 mg/dL Blood 08/17/2024 10:3 5 AM SUPPLY CHAIN MANAGER us Ramos Carranza MD POINT OF CARE TEST ORDERABLE S Final Result * eGFR (08/07/2024 4:19 PM SUPPLY CHAIN MANAGER) eGFR 65 >=60 mL/min/1. 73 m2 [facility] Comment: Interpretive Data Reference Interval Normal [...] of Race in Diagnosing Kidney Disease, JASN 2020). The CKD-EPI equation should not be used for patients with unstable renal function and has not been validated in children and those over 70. Current interpretive data was last reviewed 2021. Blood 08/07/2024 4:19 PM SUPPLY CHAIN MANAGER 08/07/2024 4:20 PM SUPPLY CHAIN MANAGER us Jorge Rodríguez Jr., MD LAB BLOOD ORDERABLES Final Result [facility] [address] [place] [address] * Lipid panel (07/03/2024 11:50 AM SUPPLY CHAIN MANAGER) Cholesterol 179 30 - 199 mg/dL Comment: [...] on 2018. Triglycerides 95 <=149 mg/dL [facility] Comment: Interpretive Data Ages < or = [...] revised on 2018. HDL 50 >=40 mg/dL [facility] Comment: Interpretive Data Ages < or = [...] on 2018. LDL, calculated 112 <=129 mg/dL [facility] Comment: Interpretive Data Ages < or = [...] revised on 2024. Non-HDL Cholesterol 129 mg/dL [facility] Comment: Interpretive Data Ages < or = [...] last revised on 2018. Chol/HDL ratio 4 [facility] Blood 07/03/2024 11:5 0 AM SUPPLY CHAIN MANAGER 07/03/2024 3:12 PM SUPPLY CHAIN MANAGER us Ramos Carranza MD LAB BLOOD ORDERABLES Final R esult [facility] Department [place] [address] from Last 3 Months or Most Recently Relevant to Health Maintenance Insurance COMMERCIAL GENERIC MEDICARE MEDICARE COMMERCIAL GENERIC MEDICARE COMMERCIAL GENERIC MEDICARE [employer] MEDICARE [employer]UST Advance Directives For more information, please contact: [phone] * Full Code (Latest Code Status on File) Date Activated Date Inactivated Comments 07/22/2024 2:00 AM 07/27/2024 12:57 AM Care Teams Appraisal Technician Relationship Specialty Start Date End Date Ramos Carranza MD [address] [place] [address] DR Jose M DELUNA [address] [place] [id number] PCP - General 12/10/16
--- OUTSIDE RECORDS SUMMARY | 2024-11-09 19:52 | XMS_ITS | Encounter Summary ---
Author Organization [facility] Address 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 Gender Identity Not on file Sexual Orientation Not on file documented as of this encounter Plan of Treatment Not on file documented as of this encounter Procedures Procedure Name Priority Date/Time Associated Diagnosis Comments CBC WITH DIFFERENTIAL Routine 05/13/2006 5:15 AM CDT CBC WITH DIFFERENTIAL Routine 05/13/2006 5:15 AM CDT documented in this encounter Results * (ABNORMAL) CBC WITH DIFFERENTIAL (05/13/2006 5:15 AM CDT) NEUTROPHILS 73(H) 45 - 70 % INTERFAC E SYSTEM LYMPHOCYTES 15(L) 16 - 45 % INTERFAC E SYSTEM MONOCYTES 11 3 - 13 % INTERFACE SYSTEM EOSINOPHILS 2 0 - 7 % INTERFAC E SYSTEM BASOPHILS 0 0 - 2 % INTERFACE SYSTEM NEUTROPHIL ABSOLUTE 9.93(H) 1.90 - 7.00 K/uL INTERFACE SYSTEM LYMPHOCYTE ABSOLUTE 1.99 0.70 - 4.50 K/uL INTERFACE SYSTEM MONOCYTE ABSOLUTE 1.48(H) 0.10 - 1.30 K/uL INTERFACE SYSTEM EOSINOPHIL ABSOLUTE 0.26 0.00 - 0.70 K/uL INTERFACE SYSTEM BASOPHILS ABSOLUTE 0.04 0.00 - 0.20 K/uL INTERFACE SYSTEM 05/13/2006 5:15 AM CDT us Jhonny Diaz MD HEMATOLOGY ORDERABLES Final Res ult INTERFACE SYSTEM Refer to clinic/hospital department * (ABNORMAL) CBC WITH DIFFERENTIAL (05/13/2006 5:15 AM CDT) WBC 13.7(H) 4.0 - 9.8 K/uL INTERFACE SYSTEM RBC 4.80 4.50 - 5.40 M/uL INTERFACE SYSTEM HEMOGLOBIN 15.4 13.6 - 16.5 g/dL INTERFACE SYSTEM HEMATOCRIT 46.3 40.0 - 48.0 % INTERFACE SYSTEM MCV 96.5 82.0 - 99.0 fL INTERFACE SYSTEM MCH 32.1 27.2 - 32.6 pg INTERFACE SYSTEM MCHC 33.3 31.5 - 35.5 % INTERFACE SYSTEM RDW 13.7 11.5 - 14.5 % INTERFACE SYSTEM RDW-STDEV 48.8(H) 37.1 - 48.7 fL INTERFACE SYSTEM PLATELETS 180 140 - 350 K/uL INTERFACE SYSTEM MPV 10.9 9.3 - 12.4 fL INTERFACE SYSTEM 05/13/2006 5:15 AM CDT us Jhonny Diaz MD HEMATOLOGY ORDERABLES Final Res ult INTERFACE SYSTEM Refer to clinic/hospital department documented in this encounter Visit Diagnoses Diagnosis Calculus of kidney- Primary documented in this encounter Care Teams Sales Advisory Manager Relationship Specialty Start Date End Date Ramos Carranza MD [address] [place] [address] DR Sal[address] [place] [phone] PCP - General Interventional Cardiology 03/01/17 documented as of this encounter
--- OUTSIDE RECORDS SUMMARY | 2024-11-09 19:52 | XMS_ITS | Clinical Summary ---
Author Organization [facility] Address [address] [place] [address] Care Team Providers Care Pediatric Orthodontist Name Role Phone Damaso Barrow DO Primary Care Provider [phone] Source Comments [facility],non-owned Affiliates and Associated Physician Practices is amultiple site organization consisting of ambulatory clinics and hospital sitesin [place], [place], [place] and [place]. This disclosure is being madepursuant to the Care Everywhere program and may not contain all information available regarding this patient. Last updated 18.[facility] Allergies No known active allergies Medications * Be aware that medications may not be up to date on this document. Alwaysverify current medications with the patient. Medication Sig Dispensed Refills Start Date End Date Status fish oil/omega-3 fatty acids (FISH OIL) 1000 MG capsule Take 1000 mg by mouth 3 times daily with meals. Active B COMPLEX PO Take by mouth. Active cetirizine (ZYRTEC) 10 MG tablet Take 10 mg by mouth daily. Active Selenium 200 MCG TABS Take 1 Tab by mouth daily. Active Zinc 50 MG CAPS Take 1 Tab by mouth daily. Active gabapentin (NEURONTIN) 300 MG capsule Take by mouth. Take 2 capsules po BID. 360 Cap 3 05/08/2010 Active lisinopril (PRINIVIL; ZESTRIL) 10 MG tablet Take 1 Tab by mouth daily. 90 Tab 3 05/08/2010 Active omeprazole (PRILOSEC) 20 MG capsule Take 1 Cap by mouth daily before breakfast. 90 Cap 3 05/08/2010 Active carbidopa-levodopa (SINEMET) 25-100 MG tablet Take 1 Tab by mouth at bedtime. 90 Tab 3 05/08/2010 Active Active Problems Problem Noted Date Diagnosed Date HTN (hypertension), benign 05/14/2010 Hyperlipidemia 05/14/2010 Restless legs syndrome (RLS) 05/14/2010 Spinal stenosis 05/14/2010 Chronic low back pain 05/14/2010 Overview (07/07/2015): Immunizations Name Administration Dates Next Due PNEUMOCOCCAL PPSV23 12/07/2006 Social History Tobacco Use Types Packs/Day Years [...] Comments Blood Pressure 144/86 11/06/2010 11:31 AM HONEYCOMB DECAPPER Pulse 64 11/06/2010 11:31 AM HONEYCOMB DECAPPER Temperature 36.3 C (97.4 F) 11/07/2009 11:03 AM HONEYCOMB DECAPPER Respiratory Rate 12 11/06/2010 11:31 AM HONEYCOMB DECAPPER Oxygen Saturation - - Inhaled Oxygen Concentration - - Weight 95.3 kg (210 lb) 11/06/2010 11:31 AM HONEYCOMB DECAPPER Height 180.3 cm (5' 11 ) 11/06/2010 11:31 AM HONEYCOMB DECAPPER Body Mass Index 29.29 11/06/2010 11:31 AM HONEYCOMB DECAPPER Plan of Treatment Health Maintenance Due Date Last Done Comments DTAP/TDAP/TD VACCINES (1 - Tdap) 1959 ZOSTER VACCINE (1 of 2) 02/20/1988 PNEUMOCOCCAL VACCINE 50+ (2 of 2 - PCV) 12/08/2007 12/07/2006 Respiratory Syncytial Virus (RSV) Vaccine Pt: or over 60 yrs (1 - 1-dose 75+ series) 2013 COVID-19 VACCINE ( - 2023-2 5 season) 2024 INFLUENZA VACCINE (#1) 2024 DEPRESSION SCREENING 08/30/2024 HEPATITIS B VACCINE Aged Out No longe r eligible based on patient's age to complete this topic HIB VACCINE Aged Out No longer eligi ble based on patient's age to complete this topic HPV VACCINE Aged Out No longer eligi ble based on patient's age to complete this topic MENINGOCOCCAL (Group B) VACC INE SHARED DECISION-MAKING Aged Out No longer eligibl e based on patient's age to complete this topic MENINGOCOCCAL GROUPS A/C/Y/W VACCINE Aged Out No longer eligible b ased on patient's age to complete this topic Care Teams Pediatric Orthodontist Relationship Specialty Start Date End Date Damaso Barrow DO [address] [place] [address] PCP - General 11/07/09
--- OUTSIDE RECORDS SUMMARY | 2024-11-09 19:52 | XMS_ITS | Referral Summary ---
Author Organization [facility] Address [address] [place] [address] Care Team Providers Care Structural Architect Name Role Phone Damaso Barrow DO Primary Care Provider [phone] Source Comments [facility],non-owned Affiliates and Associated Physician Practices is amultiple site organization consisting of ambulatory clinics and hospital sitesin [place], [place] and [place]. This disclosure is being madepursuant to the Care Everywhere program and may not contain all information available regarding this patient. Last updated 18.[facility] Allergies No known active allergies Medications * [...] Comments Blood Pressure 144/86 11/06/2010 11:31 AM PRACTICE PROFESSIONAL Pulse 64 11/06/2010 11:31 AM PRACTICE PROFESSIONAL Temperature 36.3 C (97.4 F) 11/07/2009 11:03 AM PRACTICE PROFESSIONAL Respiratory Rate 12 11/06/2010 11:31 AM PRACTICE PROFESSIONAL Oxygen Saturation - - Inhaled Oxygen Concentration - - Weight 95.3 kg (210 lb) 11/06/2010 11:31 AM PRACTICE PROFESSIONAL Height 180.3 cm (5' 11 ) 11/06/2010 11:31 AM PRACTICE PROFESSIONAL Body Mass Index 29.29 11/06/2010 11:31 AM PRACTICE PROFESSIONAL Plan of Treatment Not on file Care Teams Structural Architect Relationship Specialty Start Date End Date Damaso Barrow DO [address] [place] [address] PCP - General 11/07/09
[2024-11-09 19:54] VITALS: BP 136/85; PULSE 80; RESP 20; TEMP 36.6; O2SAT 97
[2024-11-09 22:35] VITALS: BP 157/73; PULSE 67; RESP 16; O2SAT 98
--- NOTE | 2024-11-09 23:45 | ED_ITS ---
HPI - Male Genitourinary General Chief complaint: Urogenital-Male Stated complaint: Right groin pain-poss Hernia Time Seen by Provider: 11/09/24 22:54 History of Present Illness HPI Narrative: Patient is a 84-year-old male who presents to the ER with concerns of a right groin hernia and right hand tingling. He reports on the way here his hernia felt better but he decided to stay it checked out. Patient has never been in this ER before has no medical records to review. He denies any chest pain, abdominal pain, back pain, recent fevers. Patient denies any medical history relevant to this ER visit. Related Data Allergies Allergy/AdvReac Type Severity Reaction Status Date / Time No Known Allergies Allergy Verified 11/09/24 19:50 Review of Systems Review of Systems: All systems reviewed & are unremarkable except as noted in HPI and below Exam Narrative: GENERAL: Well appearing, well-nourished, non-toxic, in no acute distress. HEAD: Normocephalic, atraumatic. NECK: Supple. No adenopathy, no masses. RESPIRATORY: Airway patent, respirations nonlabored. Clear to auscultation bilaterally, no rales, rhonchi, wheezing. CARDIOVASCULAR: Regular rate and rhythm without murmurs, rubs, or gallops. Peripheral pulses 2+ and equal bilaterally. ABDOMINAL: Soft, nontender, nondistended, no hepatosplenomegaly. Normoactive BS. MUSCULOSKELETAL: Moves all extremities. Strength/ROM intact without gross deformities. SKIN: Warm, dry, normal color. No rashes. NEURO: A&O X3. Speech clear. Cranial nerves II-XII grossly intact. Steady gait. PSYCHIATRIC: Appropriate mood and affect. Normal interaction. Course Vital Signs Vital signs: Vital Signs Temperature 36.6 C 11/09/24 19:54 Pulse Rate 80 11/09/24 19:54 Respiratory Rate 20 11/09/24 19:54 Blood Pressure 136/85 11/09/24 19:54 Pulse Oximetry 97 11/09/24 19:54 Oxygen Delivery Room Air 11/09/24 19:54 Temperature 36.6 C 11/09/24 19:54 Pulse Rate 67 11/09/24 22:35 Respiratory Rate 16 11/09/24 22:35 Blood Pressure 157/73 H 11/09/24 22:35 Pulse Oximetry 98 11/09/24 22:35 Oxygen Delivery Room Air 11/09/24 19:54 MDM - Male Genitourinary MDM Narrative Medical decision making narrative: Patient is a 84-year-old male who presents to the ER with concerns of a right groin hernia and right hand tingling. He reports on the way here his hernia felt better but he decided to stay it checked out. Patient has never been in this ER before has no medical records to review. He denies any chest pain, abdominal pain, back pain, recent fevers. Patient denies any medical history relevant to this ER visit. Patient reports I have been waiting here long enough and I am going to go home. It is getting too late. Patient signed AMA and was escorted out of the ER by his ER nurse. He is alert and oriented x4 the time of discharge. Differential Diagnosis Differential diagnosis: Likely urinary tract infection, acute retention of urine, inguinal hernia and other (R hand tingling, neuropathy) Discharge Plan Discharge Clinical Impression: Inguinal hernia Patient Disposition: Elopement After Seen by Prov Condition: Stable Patient Language: Djiboutian Follow-up/Referrals: PHYSICIAN NOT ON STAFF,NONSTAFF [Primary Care Provider] -
--- NOTE | 2024-11-09 23:53 | PC.NURSE ---
pt walks up to this RN at nursing station and states they would like to leave and , I will not see a woman doctor . pt signs AMA form and ambulates out of ED with steady gait, no pain and axo4.
--- OUTSIDE RECORDS SUMMARY | 2024-11-10 00:20 | XMS_ITS | Encounter Summary ---
Author Organization [facility] Address 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
--- OUTSIDE RECORDS SUMMARY | 2024-11-10 00:20 | XMS_ITS | Clinical Summary ---
Author Organization [facility] Address [address] [place] [address] Care Team Providers Care Buyer Agent Name Role Phone Ramos Carranza MD Primary Care Provider [phone] Allergies No known active allergies Medications herbal drugs (COLON HERBAL CLEANSER ORAL) daily. 5 Active omega 3-fer-bny-fish oil (FISH OIL) 1,000 mg (120 mg-180 [...] 07/24/2024 Assessment & Plan (07/26/2024 12:36 PM PRODUCTION UNDERWRITER): 07/24: pending syncope work up. Pain control, IS to 2L. Okay to transfer to the floor. Will need rehab when medically stable for discharge. Anticipate pt to be medically stable 07/25 vs 07/26 07/25 Holding discharge given ECHO results. Cardiology consulted. 07/26 Patient is medically stable for discharge, SW/CM updated. Discharge pending facility bed availability. Transferring to [facility] today. Treatment plan note [x] Fracture of multiple ribs of left side 4 Assessment & Plan (07/26/2024 12:32 PM PRODUCTION UNDERWRITER): #L anterior 4-6 rib fractures - pulm hygiene, IS - pain control - PT/OT 07/26 Respiration unlabored, no oxygen, no SOB. Will follow up in [facility] with CXR- ordered at discharge They were given the decision to go to his PCP Dr. Carranza for evaluation and CXR instead of coming to [facility]. They were asked to call and cancel appointment if going to PCP. Peripheral neuropathy 07/22/2024 Assessment & Plan (07/22/2024 11:49 AM PRODUCTION UNDERWRITER): Longstanding peripheral neuropathy, 2/2 poorly controlled diabetes BPH (benign prostatic hyperplasia) 07/22/2024 Assessment & Plan (07/25/2024 1:05 PM PRODUCTION UNDERWRITER): - On flomax at home, dc'd - Started on terazosin 07/25 voiding without difficulty. Nasal bone fracture 07/22/2024 Assessment & Plan (07/25/2024 12:58 PM PRODUCTION UNDERWRITER): - Minimally displaced fx of the nasal [...] or concerns, [facility]: Call [phone] to make an appointment. Orbital floor fracture 07/22/2024 Assessment & Plan (07/25/2024 1:01 PM PRODUCTION UNDERWRITER): - Ophtho to schedule patient for follow up in clinic - Schedulers aware; They will reach out to him after discharge to schedule an appointment. Fall, initial encounter 07/21/2024 Assessment & Plan (07/25/2024 1:04 PM PRODUCTION UNDERWRITER): Has a history of multiple falls in the past. - Syncopal workup given unclear mechanism --- OSVS negative 07/24 --- TTE See above, LVEF 20% and markedly dilated LV with LVH --- Carotid Duplex negative CKD (chronic kidney disease) stage 3, GFR 30-59 ml/min 12/01/2023 Assessment & Plan (07/25/2024 1:05 PM PRODUCTION UNDERWRITER): Cr 1.01 on arrival to ED - Baseline Cr 0.9 to 1.1 - 07/23: 1.14 07/25 sCr 1.0- baseline Dystrophia unguium 05/08/2019 Abnormal gait 02/28/2019 Heartburn 02/27/2019 Seasonal allergies 02/27/2019 Great toe pain 12/29/2017 Pain and swelling of ankle 12/29/2017 Venous insufficiency 12/06/2017 Chronic constipation 09/06/2017 Assessment & Plan (07/22/2024 12:01 PM PRODUCTION UNDERWRITER): Home senna resumed Tendon injury 04/23/2017 Fall in home 04/21/2017 Pain in the shoulder 04/21/2017 Encounter for long-term (cur rent) use of high-risk medication 02/26/2016 History of total knee replacement 09/11/2015 Benign colonic polyp 09/10/2015 Colon cancer screening 06/25/2015 Gastroesophageal reflux disease 06/25/2015 HTN (hypertension), benign 06/25/2015 Assessment & Plan (07/26/2024 12:30 PM PRODUCTION UNDERWRITER): - Home medications: irbesartan 150 mg, resumed [...] this medication. We will discuss with patient's pathology manager (Dr. Ramos Carranza) who is also his PCP about a gradual introduction of GDMT/ischemic evaluation if patient attains recovery in terms of hypotension and falls. 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/25/2015 Restless legs syndrome (RLS) 06/25/2015 Spinal stenosis 06/25/2015 Chronic low back pain 05/14/2010 Overview (02/28/2018): Overview: Hyperlipidemia 05/14/2010 Resolved Problems Problem Noted Date Diagnosed Date Resolved Date Facial fracture 07/22/2024 07/22/2024 Encounters Date Type Department Care Team Description 09/29/2024 10:30 AM PRODUCTION UNDERWRITER Office Visit [address] [phone] Ramos Carranza MD Essential hypertension (Primary Dx); Venous insufficiency; Benign prostatic hyperplasia, unspecified whether lower urinary tract symptoms present; History of total left knee replacement; Type 2 diabetes mellitus with diabetic nephropathy, without long-term current use of insulin (HCC); Hypertension associated with diabetes (HCC) 09/06/[address] [phone] Ramos Carranza MD Med rf WILMA (Gabapentin) 08/17/2024 9:30 AM PRODUCTION UNDERWRITER Office Visit [address] [phone] Ramos Carranza MD Chronic systolic congestive heart failure (HCC) (Primary Dx); Need for pneumococcal vaccination; Uncontrolled type 2 diabetes mellitus with hyperglycemia (HCC); Elevated glucose 08/17/[address] [phone] Ramos Carranza MD Med rf WILMA (Glucometer) 08/16/[address] [place] [phone] Ramos Carranza MD rqst to elsie JOHNSON [...] on file Legal Sex Male 11:08 PM PRODUCTION UNDERWRITER Gender Identity Male 05/03/2024 2:56 PM CDT Sexual Orientation Not on file Obstetrics History Last Filed Vital Signs Vital Sign Reading Time Taken Comments Blood Pressure 90/60 09/29/2024 10:17 AM PRODUCTION UNDERWRITER Pulse 68 09/29/2024 10:17 AM PRODUCTION UNDERWRITER Temperature 36.4 C (97.6 F) 08/17/2024 9:32 AM PRODUCTION UNDERWRITER Respiratory Rate 16 07/26/2024 4:09 PM PRODUCTION UNDERWRITER Oxygen Saturation 98% 09/29/2024 10:17 AM PRODUCTION UNDERWRITER Inhaled Oxygen Concentration - - Weight 86.6 kg (191 lb) 09/29/2024 10:17 AM PRODUCTION UNDERWRITER Height 179.1 cm (5' 10.5 ) 09/29/2024 10:17 AM C Body Mass Index 27.02 09/29/2024 10:17 AM PRODUCTION UNDERWRITER Plan of Treatment Health Maintenance Due Date [...] Comments POCT GLUCOSE Routine 08/17/2024 10:35 AM PRODUCTION UNDERWRITER Elevated glucose POCT HEMOGLOBIN A1C Routine 08/17/2024 1 0:35 AM PRODUCTION UNDERWRITER Uncontrolled type 2 diabetes mellitus with hyperglycemia (HCC) EGFR Routine 08/07/2024 4:19 PM PRODUCTION UNDERWRITER LIPID PANEL Routine 07/03/2024 11:50 AM PRODUCTION UNDERWRITER Hypertension associated with diabetes (HCC) from Last 3 Months or Most Recently Relevant to Health Maintenance Results * POCT hemoglobin A1c (08/17/2024 10:35 AM PRODUCTION UNDERWRITER) Hemoglobin A1C, POC 7.3 4.0 - 5.6 % Blood 08/17/2024 10:3 5 AM PRODUCTION UNDERWRITER Ramos Carranza MD POINT OF CARE TEST ORDERABLE S Final Result * POCT glucose (08/17/2024 10:35 AM PRODUCTION UNDERWRITER) Glucose Blood, POC 120 mg/dL Blood 08/17/2024 10:3 5 AM PRODUCTION UNDERWRITER Ramos Carranza MD POINT OF CARE TEST ORDERABLE S Final Result * eGFR (08/07/2024 4:19 PM PRODUCTION UNDERWRITER) eGFR 65 >=60 mL/min/1. 73 m2 [facility] Comment: Interpretive Data Reference Interval Normal >/= [...] last reviewed 2021. Blood 08/07/2024 4:19 PM PRODUCTION UNDERWRITER 08/07/2024 4:20 PM PRODUCTION UNDERWRITER Jorge Rodríguez Jr., MD LAB BLOOD ORDERABLES Final Result [facility] [address] Department [place] [address] * Lipid panel (07/03/2024 11:50 AM PRODUCTION UNDERWRITER) Cholesterol 179 30 - 199 mg/dL Comment: [...] on 2018. Triglycerides 95 <=149 mg/dL [facility] Comment: Interpretive Data Ages < or = [...] on 2018. HDL 50 >=40 mg/dL [facility] Comment: Interpretive Data Ages < or = [...] last revised on 2018. Chol/HDL ratio 4 [facility] Blood 07/03/2024 11:5 0 AM PRODUCTION UNDERWRITER 07/03/2024 3:12 PM PRODUCTION UNDERWRITER us Ramos Carranza MD LAB BLOOD ORDERABLES Final R esult [facility] Department [place] [address] from Last 3 Months or Most Recently Relevant to Health Maintenance Insurance [facility] [place] [phone] COMMERCIAL GENERIC MEDICARE MEDICARE COMMERCIAL GENERIC MEDICARE COMMERCIAL GENERIC MEDICARE [employer] MEDICARE TRUST Advance Directives For more information, please contact: [phone] * Full Code (Latest Code Status on File) Date Activated Date Inactivated Comments 07/22/2024 2:00 AM 07/27/2024 12:57 AM Care Teams Buyer Agent Relationship Specialty Start Date End Date Ramos Carranza MD [facility] [address] Jose M DELUNA [address] [place] [id number] PCP - General 12/10/16
--- OUTSIDE RECORDS SUMMARY | 2024-11-10 00:20 | XMS_ITS | Patient Health Summary ---
Author Organization [facility] Address [address] [facility] [place] [address] Care Team Providers Care Skin Washer Name Role Phone Damaso Barrow DO Primary Care Provider [phone] Note from [facility],non-owned Affiliates and Associated Physician Practices is amultiple site organization consisting of ambulatory clinics and hospital sitesin [place], [place], [place] and [place]. This disclosure is being madepursuant to the Care Everywhere program and may not contain all information available regarding this patient. Last updated 18.[facility] Allergies No known active allergies Medications [...] Comments Blood Pressure 144/86 11/06/2010 11:31 AM AGRICULTURAL COMMODITIES INSPECTOR Pulse 64 11/06/2010 11:31 AM AGRICULTURAL COMMODITIES INSPECTOR Temperature 36.3 C (97.4 F) 11/07/2009 11:03 AM AGRICULTURAL COMMODITIES INSPECTOR Respiratory Rate 12 11/06/2010 11:31 AM AGRICULTURAL COMMODITIES INSPECTOR Oxygen Saturation - - Inhaled Oxygen Concentration - - Weight 95.3 kg (210 lb) 11/06/2010 11:31 AM AGRICULTURAL COMMODITIES INSPECTOR Height 180.3 cm (5' 11 ) 11/06/2010 11:31 AM AGRICULTURAL COMMODITIES INSPECTOR Body Mass Index 29.29 11/06/2010 11:31 AM AGRICULTURAL COMMODITIES INSPECTOR Procedures * VITAMIN D 25-HYDROXY(Performed 11/06/2010) Performed [...] * VITAMIN D 25-HYDROXY (11/06/2010 11:53 AM AGRICULTURAL COMMODITIES INSPECTOR) Only the most recent of4 resultswithin the time period is included. Vitamin D, 25 Hydroxy 37.4 32.0 - 100.0 ng/mL [facility] INSURANCE BILL Comment: Recent studies consider the lower limit of 32.0 ng/mL to be a threshold for optimal health. Clarence SINCLAIR. J Nutr. 2004;135(2):317-22. BLOOD SPECIMEN / Unknown 11/06/2010 11:53 AM AGRICULTURAL COMMODITIES INSPECTOR 11/06/2010 6:33 PM AGRICULTURAL COMMODITIES INSPECTOR Narrative Resulting Agency Comment [facility] [address] [phone] Damaso Barrow DO LAB - CHEMISTRY LOUIE FRANCISCO [facility] INSURANCE BILL * (ABNORMAL) GENERAL HEALTH PANEL (11/06/2010 11:52 AM AGRICULTURAL COMMODITIES INSPECTOR) Glucose 113(H) 65 - 99 mg/dL [facility] [...] BLOOD SPECIMEN / Unknown 11/06/2010 11:52 AM AGRICULTURAL COMMODITIES INSPECTOR 11/06/2010 6:43 PM AGRICULTURAL COMMODITIES INSPECTOR Narrative Resulting Agency Comment [facility] [address] [facility] [id number] [facility] LAB - CHEMISTRY [facility] Performing Organization Address [facility] de Phone Number [facility] INSURANCE BILL * (ABNORMAL) LIPID PROFILE (11/06/2010 11:52 AM AGRICULTURAL COMMODITIES INSPECTOR) Only the most recent of3 resultswithin the [...] BLOOD SPECIMEN / Unknown 11/06/2010 11:52 AM AGRICULTURAL COMMODITIES INSPECTOR 11/06/2010 6:43 PM AGRICULTURAL COMMODITIES INSPECTOR Narrative Resulting Agency Comment [facility] [address] [facility] [phone] [facility] DO LAB - CHEMISTRY ORDSignaCert [employer] Performing Organization Address [facility] Co de Phone Number [facility] INSURANCE BILL [...] PM CDT Narrative Resulting Agency Comment [facility] [address] [id number] Damaso Barrow DO LAB - CHEMISTRY LOUIE FRANCISCO [facility] INSURANCE BILL * (ABNORMAL) CBC W AUTO DIFFERENTIAL (11/07/2009 11:49 AM AGRICULTURAL COMMODITIES INSPECTOR) WBC 8.0 4.0 - 10.5 x10E3/uL [facility] [...] BLOOD SPECIMEN / Unknown 11/07/2009 11:49 AM AGRICULTURAL COMMODITIES INSPECTOR 11/07/2009 6:14 PM AGRICULTURAL COMMODITIES INSPECTOR Narrative [facility] INSURANCE BILL - 11/08/2009 8:31 AM AGRICULTURAL COMMODITIES INSPECTOR Additional Result Information IMMATURE CELLS ([facility]): RESULT NOT AVAILABLE IMMATURE GRANULOCYTES ([facility]): RESULT NOT AVAILABLE IMMATURE GRANS (ABS) ([facility]): RESULT NOT AVAILABLE NRBC ([facility]): RESULT NOT AVAILABLE HEMATOLOGY COMMENTS: BLOOD,URINE ([facility]): RESULT NOT AVAILABLE Resulting Agency Comment [facility] [address] [id number] Damaso Barrow DO LAB - HEMATOLOGY ORD ERABLES Performing Organization Address City/[facility]/ZIP Co de Phone Number [facility] INSURANCE BILL * TSH (11/07/2009 11:49 AM AGRICULTURAL COMMODITIES INSPECTOR) TSH 0.756 0.450 - 4.500 uIU/mL [facility] INSURANCE BILL BLOOD SPECIMEN / Unknown 11/07/2009 11:49 AM AGRICULTURAL COMMODITIES INSPECTOR 11/07/2009 6:14 PM AGRICULTURAL COMMODITIES INSPECTOR Narrative Resulting Agency Comment [facility] [address] [phone] Damaso Barrow DO LAB - CHEMISTRY ORDE RABLES Performing Organization Address City/[facility] Co de Phone Number [facility] INSURANCE BILL * (ABNORMAL) BASIC METABOLIC PANEL (CALCIUM TOTAL) (09/04/2008 12:08 PM AGRICULTURAL COMMODITIES INSPECTOR) Glucose 110(H) 65 - 99 mg/dL [facility] [...] [facility] INSURANCE BILL 09/04/2008 12:0 8 PM AGRICULTURAL COMMODITIES INSPECTOR 09/04/2008 6:41 PM AGRICULTURAL COMMODITIES INSPECTOR Narrative Resulting Agency Comment [facility] [address] [id number] Damaso Barrow DO LAB - CHEMISTRY LOUIE FRANCISCO [facility] INSURANCE BILL Care Teams Skin Washer Relationship Specialty Start Date End Date Damaso Barrow DO [address] [place] [address] PCP - General 11/07/09
--- OUTSIDE RECORDS SUMMARY | 2024-11-10 00:20 | XMS_ITS | Encounter Summary ---
Author Organization [facility] Address [address] [place] [address] Care Team Providers Care Debone Processing Supervisor Name Role Phone Ramos Carranza MD Primary Care Provider Encounter Details Date Type Department Care Team (Late st Contact Info) Description 05/12/2006 Outpatient Historical [facility] Support Serv. (Adt Cardiology-[facility]) [address] 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
--- OUTSIDE RECORDS SUMMARY | 2024-11-10 00:20 | XMS_ITS | Encounter Summary ---
Author Organization [facility] Address [address] [place] [address] Care Team Providers Care Trustee Of Estate Name Role Phone Ramos Carranza MD Primary Care Provider [phone] Encounter Details Date Type Department Care Team (Late st Contact Info) Description 07/26/2024 Documentation [facility] [address] [place] [address] Heather Day Social History Tobacco Use Types [...] on file Legal Sex Male 11:08 PM CONTROL SUPERVISOR Gender Identity Male 05/03/2024 2:56 PM CDT Sexual Orientation Not on file documented as of this encounter Plan of Treatment Not on file documented as of this encounter Visit Diagnoses Not on filedocumented in this encounter Care Teams Trustee Of Estate Relationship Specialty Start Date End Date Ramos Carranza MD [address] [place] [address] DR Jose M DELUNA [address] [place] [id number] PCP - General 12/10/16 documented as of this encounter
--- OUTSIDE RECORDS SUMMARY | 2024-11-10 00:20 | XMS_ITS | Referral Summary ---
Author Organization [facility] Address [address] [place] [address] Care Team Providers Care Carbon Printer Name Role Phone Ramos Carranza MD Primary Care Provider [phone] Encounters Date Type Department Care Team Description 09/29/2024 10:30 AM ETHYLBENZENE CRACKING SUPERVISOR Office Visit [address] [phone] Ramos Carranza MD Essential hypertension (Primary Dx); Venous insufficiency; Benign prostatic hyperplasia, unspecified whether lower urinary tract symptoms present; History of total left knee replacement; Type 2 diabetes mellitus with diabetic nephropathy, without long-term current use of insulin (HCC); Hypertension associated with diabetes (HCC) 09/06/[address] [phone] Ramos Carranza MD Med rf WILMA (Gabapentin) 08/17/[address] [phone] Ramos Carranza MD Med rf WILMA (Glucometer) 08/17/2024 9:30 AM ETHYLBENZENE CRACKING SUPERVISOR Office Visit [address] [phone] Ramos Carranza MD Chronic systolic congestive heart failure (HCC) (Primary Dx); Need for pneumococcal vaccination; Uncontrolled type 2 diabetes mellitus with hyperglycemia (HCC); Elevated glucose 08/16/[address] [phone] Ramos Carranza MD rqst to s/w from Last 3 Months Allergies No known active allergies Medications herbal drugs (COLON HERBAL CLEANSER ORAL) daily. 5 Active omega 4-iux-eye-fish oil (FISH OIL) 1,000 mg (120 mg-180 [...] 07/24/2024 Assessment & Plan (07/26/2024 12:36 PM ETHYLBENZENE CRACKING SUPERVISOR): 07/24: pending syncope work up. Pain control, IS to 2L. Okay to transfer to the floor. Will need rehab when medically stable for discharge. Anticipate pt to be medically stable 07/25 vs 07/26 07/25 Holding discharge given ECHO results. Cardiology consulted. 07/26 Patient is medically stable for discharge, SW/CM updated. Discharge pending facility bed availability. Transferring to [facility] today. Treatment plan note [x] Fracture of multiple ribs of left side Assessment & Plan (07/26/2024 12:32 PM ETHYLBENZENE CRACKING SUPERVISOR): #L anterior 4-6 rib fractures - pulm hygiene, IS - pain control - PT/OT 07/26 Respiration unlabored, no oxygen, no SOB. Will follow up in [facility] with CXR- ordered at discharge They were given the decision to go to his PCP Dr. Carranza for evaluation and CXR instead of coming to [facility]. They were asked to call and cancel appointment if going to PCP. Peripheral neuropathy 07/22/2024 Assessment & Plan (07/22/2024 11:49 AM ETHYLBENZENE CRACKING SUPERVISOR): Longstanding peripheral neuropathy, 2/2 poorly controlled diabetes BPH (benign prostatic hyperplasia) 07/22/2024 Assessment & Plan (07/25/2024 1:05 PM ETHYLBENZENE CRACKING SUPERVISOR): - On flomax at home, dc'd - Started on terazosin 07/25 voiding without difficulty. Nasal bone fracture 07/22/2024 Assessment & Plan (07/25/2024 12:58 PM ETHYLBENZENE CRACKING SUPERVISOR): - Minimally displaced fx of the nasal [...] or concerns, [facility]: Call [phone] to make an appointment. Orbital floor fracture 07/22/2024 Assessment & Plan (07/25/2024 1:01 PM ETHYLBENZENE CRACKING SUPERVISOR): - Ophtho to schedule patient for follow up in clinic - Schedulers aware; They will reach out to him after discharge to schedule an appointment. Fall, initial encounter 07/21/2024 Assessment & Plan (07/25/2024 1:04 PM ETHYLBENZENE CRACKING SUPERVISOR): Has a history of multiple falls in the past. - Syncopal workup given unclear mechanism --- OSVS negative 07/24 --- TTE See above, LVEF 20% and markedly dilated LV with LVH --- Carotid Duplex negative CKD (chronic kidney disease) stage 3, GFR 30-59 ml/min 12/01/2023 Assessment & Plan (07/25/2024 1:05 PM ETHYLBENZENE CRACKING SUPERVISOR): Cr 1.01 on arrival to ED - Baseline Cr 0.9 to 1.1 - 07/23: 1.14 07/25 sCr 1.0- baseline Dystrophia unguium 05/08/2019 Abnormal gait 02/28/2019 Heartburn 02/27/2019 Seasonal allergies 02/27/2019 Great toe pain 12/29/2017 Pain and swelling of ankle 12/29/2017 Venous insufficiency 12/06/2017 Chronic constipation 09/06/2017 Assessment & Plan (07/22/2024 12:01 PM ETHYLBENZENE CRACKING SUPERVISOR): Home senna resumed Tendon injury 04/23/2017 Fall in home 04/21/2017 Pain in the shoulder 04/21/2017 Encounter for long-term (cur rent) use of high-risk medication 02/26/2016 History of total knee replacement 09/11/2015 Benign colonic polyp 09/10/2015 Colon cancer screening 06/25/2015 Gastroesophageal reflux disease 06/25/2015 HTN (hypertension), benign 06/25/2015 Assessment & Plan (07/26/2024 12:30 PM ETHYLBENZENE CRACKING SUPERVISOR): - Home medications: irbesartan 150 mg, resumed [...] this medication. We will discuss with patient's director enterprise data architecture (Dr. Ramos Carranza) who is also his PCP about a gradual introduction of GDMT/ischemic evaluation if patient attains recovery in terms of hypotension and falls. Recommendations: - Agree with holding irbesartan on discharge - Please limit polypharmacy for patient - Agree with pursuing further rehabilitation-transferring to [facility] Nephrolithiasis 06/25/2015 Obstructive sleep apnea syndrome 06/25/2015 Osteoarthritis 06/25/2015 Parkinsonism 06/25/2015 Assessment & Plan (07/22/2024 11:50 AM ETHYLBENZENE CRACKING SUPERVISOR): - Home sinemet continued Peripheral nerve disease [...] on file Legal Sex Male 11:08 PM ETHYLBENZENE CRACKING SUPERVISOR Gender Identity Male 05/03/2024 2:56 PM CDT Sexual Orientation Not on file Last Filed Vital Signs Vital Sign Reading Time Taken Comments Blood Pressure 90/60 09/29/2024 10:17 AM ETHYLBENZENE CRACKING SUPERVISOR Pulse 68 09/29/2024 10:17 AM ETHYLBENZENE CRACKING SUPERVISOR Temperature 36.4 C (97.6 F) 08/17/2024 9:32 AM ETHYLBENZENE CRACKING SUPERVISOR Respiratory Rate 16 07/26/2024 4:09 PM ETHYLBENZENE CRACKING SUPERVISOR Oxygen Saturation 98% 09/29/2024 10:17 AM ETHYLBENZENE CRACKING SUPERVISOR Inhaled Oxygen Concentration - - Weight 86.6 kg (191 lb) 09/29/2024 10:17 AM ETHYLBENZENE CRACKING SUPERVISOR Height 179.1 cm (5' 10.5 ) 09/29/2024 10:17 AM C Body Mass Index 27.02 09/29/2024 10:17 AM ETHYLBENZENE CRACKING SUPERVISOR Plan of Treatment Not on file Procedures Procedure Name Priority Date/Time Associated Diagnosis Comments POCT GLUCOSE Routine 08/17/2024 10:35 AM ETHYLBENZENE CRACKING SUPERVISOR Elevated glucose POCT HEMOGLOBIN A1C Routine 08/17/2024 1 0:35 AM ETHYLBENZENE CRACKING SUPERVISOR Uncontrolled type 2 diabetes mellitus with hyperglycemia (HCC) EGFR Routine 08/07/2024 4:19 PM ETHYLBENZENE CRACKING SUPERVISOR LIPID PANEL Routine 07/03/2024 11:50 AM ETHYLBENZENE CRACKING SUPERVISOR Hypertension associated with diabetes (HCC) from Last 3 Months or Most Recently Relevant to Health Maintenance Results * POCT hemoglobin A1c (08/17/2024 10:35 AM ETHYLBENZENE CRACKING SUPERVISOR) Hemoglobin A1C, POC 7.3 4.0 - 5.6 % Blood 08/17/2024 10:3 5 AM ETHYLBENZENE CRACKING SUPERVISOR us Ramos Carranza MD POINT OF CARE TEST ORDERABLE S Final Result * POCT glucose (08/17/2024 10:35 AM ETHYLBENZENE CRACKING SUPERVISOR) Glucose Blood, POC 120 mg/dL Blood 08/17/2024 10:3 5 AM ETHYLBENZENE CRACKING SUPERVISOR us Ramos Carranza MD POINT OF CARE TEST ORDERABLE S Final Result * eGFR (08/07/2024 4:19 PM ETHYLBENZENE CRACKING SUPERVISOR) eGFR 65 >=60 mL/min/1. 73 m2 [facility] Comment: Interpretive Data Reference Interval Normal >/= [...] last reviewed 2021. Blood 08/07/2024 4:19 PM ETHYLBENZENE CRACKING SUPERVISOR 08/07/2024 4:20 PM ETHYLBENZENE CRACKING SUPERVISOR us Jorge Rodríguez Jr., MD LAB BLOOD ORDERABLES Final Result [facility] [address] Department [place] [address] * Lipid panel (07/03/2024 11:50 AM ETHYLBENZENE CRACKING SUPERVISOR) Cholesterol 179 30 - 199 mg/dL Comment: [...] on 2018. Triglycerides 95 <=149 mg/dL [facility] Comment: Interpretive Data Ages < or = [...] revised on 2018. HDL 50 >=40 mg/dL [facility] Comment: Interpretive Data Ages < or [...] on 2018. LDL, calculated 112 <=129 mg/dL [facility] Comment: Interpretive Data Ages < or [...] revised on 2024. Non-HDL Cholesterol 129 mg/dL [facility] Comment: Interpretive Data Ages < or [...] revised on 2018. Chol/HDL ratio 4 [facility] Blood 07/03/2024 11:5 0 AM ETHYLBENZENE CRACKING SUPERVISOR 07/03/2024 3:12 PM ETHYLBENZENE CRACKING SUPERVISOR us Ramos Carranza MD LAB BLOOD ORDERABLES Final R esult [facility] Department [place] [address] from Last 3 Months or Most Recently Relevant to Health Maintenance Insurance COMMERCIAL GENERIC MEDICARE MEDICARE COMMERCIAL GENERIC MEDICARE COMMERCIAL GENERIC MEDICARE [employer] MEDICARE [employer] Advance Directives For more information, please contact: [phone] * Full Code (Latest Code Status on File) Date Activated Date Inactivated Comments 07/22/2024 2:00 AM 07/27/2024 12:57 AM Care Teams Carbon Printer Relationship Specialty Start Date End Date Ramos Carranza MD [address] [place] [address] DR Jose M DELUNA [address] [place] [address] PCP - General 12/10/16
--- OUTSIDE RECORDS SUMMARY | 2024-11-10 00:20 | XMS_ITS | Referral Summary ---
Author Organization [facility] Address [address] [facility] [place] [address] Care Team Providers Care Metal Bonding Press Operator Name Role Phone Damaso Barrow DO Primary Care Provider [phone] Source Comments [facility],non-owned Affiliates and Associated Physician Practices is amultiple site organization consisting of ambulatory clinics and hospital sitesin [place], [place], [place] and [place]. This disclosure is being madepursuant to the Care Everywhere program and may not contain all information available regarding this patient. Last updated 18.[facility] Allergies No known active allergies Medications * [...] Comments Blood Pressure 144/86 11/06/2010 11:31 AM MODELING AND SIMULATION ANALYST Pulse 64 11/06/2010 11:31 AM MODELING AND SIMULATION ANALYST Temperature 36.3 C (97.4 F) 11/07/2009 11:03 AM MODELING AND SIMULATION ANALYST Respiratory Rate 12 11/06/2010 11:31 AM MODELING AND SIMULATION ANALYST Oxygen Saturation - - Inhaled Oxygen Concentration - - Weight 95.3 kg (210 lb) 11/06/2010 11:31 AM MODELING AND SIMULATION ANALYST Height 180.3 cm (5' 11 ) 11/06/2010 11:31 AM MODELING AND SIMULATION ANALYST Body Mass Index 29.29 11/06/2010 11:31 AM MODELING AND SIMULATION ANALYST Plan of Treatment Not on file Care Teams Metal Bonding Press Operator Relationship Specialty Start Date End Date Damaso Barrow DO [address] [place] [address] PCP - General 11/07/09
--- OUTSIDE RECORDS SUMMARY | 2024-11-10 00:20 | XMS_ITS | Clinical Summary ---
Author Organization [facility] Address [address] [place] [address] Phone Care Team Providers Care Toolroom Keeper Name Role Phone Ramos Carranza MD Primary Care Provider Allergies No known active allergies Medications carbidopa-levod [...] Take 400 Units by mouth daily. Active Tvczk-8-FNN-EPA -Fish Oil (FISH OIL) 1,000 mg (120 [...] on file Legal Sex Male 4:30 AM LITIGATION EXAMINER Gender Identity Not on file Sexual Orientation [...] 2024 06/01/2016 Medical Devices Implanted Type Area Interior Designer Device Identifier Shelf Expiration Date Model / Serial / Lot Stent Polaris Ultra [id number] - [id number] Implanted:Qty : 1 on 03/11/2017 by Jhonny Diaz MD at [facility] Stent Right: Ureter [employer]- UROLOGY/HEAD FILTER PRESS TENDER [id number] 12/18/[address] [id number] [place] [address] MEDICARE PART A AND B RX OPTUM RX Member Subscriber Plan / Payer (Ef fective 2006-Present) Name:PrestonLakshmi Relation to Subscriber:Self Name:Sri Johnstonkaia William Payer ID:Not on file Group ID:[id number] Type:RX Medicare Part D Address: [facility] Advance Directives For more information, please contact: [phone] * Full Code (Latest Code Status on File) Date Activated Date Inactivated Comments 03/11/2017 7:21 AM 03/11/2017 2:24 PM Care Teams Toolroom Keeper Relationship Specialty Start Date End Date Ramos Carranza MD [address] [place] [address] PCP - General Interventional Cardiology 03/01/17
--- OUTSIDE RECORDS SUMMARY | 2024-11-10 00:20 | XMS_ITS | Clinical Summary ---
Author Organization [facility] Address [address] [place] [address] Care Team Providers Care Photo Colorer Name Role Phone Damaso Barrow DO Primary Care Provider [phone] Source Comments [facility],non-owned Affiliates and Associated Physician Practices is amultiple site organization consisting of ambulatory clinics and hospital sitesin [place], [place], [place] and [place]. This disclosure is being madepursuant to the Care Everywhere program and may not contain all information available regarding this patient. Last updated 18.[facility] Allergies No known active allergies Medications * [...] Comments Blood Pressure 144/86 11/06/2010 11:31 AM LINEN CHECKER Pulse 64 11/06/2010 11:31 AM LINEN CHECKER Temperature 36.3 C (97.4 F) 11/07/2009 11:03 AM LINEN CHECKER Respiratory Rate 12 11/06/2010 11:31 AM LINEN CHECKER Oxygen Saturation - - Inhaled Oxygen Concentration - - Weight 95.3 kg (210 lb) 11/06/2010 11:31 AM LINEN CHECKER Height 180.3 cm (5' 11 ) 11/06/2010 11:31 AM LINEN CHECKER Body Mass Index 29.29 11/06/2010 11:31 AM LINEN CHECKER Plan of Treatment Health Maintenance Due Date [...] age to complete this topic Care Teams Photo Colorer Relationship Specialty Start Date End Date Damaso Barrow DO [address] [place] [address] PCP - General 11/07/09
== END 2024-11-09 23:45 | disposition left against medical advice (07) ==
LOC: ANHED 11-10 00:18
PROVIDERS: Emergency Provider Registered Nurse
DX: K40.90 Unilateral inguinal hernia, without obstruction or gangrene, not specified as recurrent (principal)
CPT/HCPCS: 99281

== ENCOUNTER 2025-01-03 15:04 | Outpatient (CLI) | payer MEDICARE, SELFPAY ==
--- NOTE | ~2025-01-03 | CT_ITS ---
CLINICAL INDICATION: Lower abdominal pain COMPARISON: None. TECHNIQUE: Multiple contiguous axial images of the abdomen and pelvis were performed without the admi nistration of intravenous contrast The dose-length product (DLP) was 432.44 mGy-cm. Automated exposure control and iterative reconstruction technique were employed. FINDINGS/OBSERVATIONS: Visualized lower thorax: The bilateral lung bases are clear. The heart is enlarged, without pericardial effusion. Liver: The liver demonstrates homogeneous attenuation and is not enlarged. Gallbladder and biliary system: The gallbladder is only minimally distended, and otherwise unremarkable. Pancreas: Limited evaluation of the pancreas secondary to the lack of intravenous contrast. Spleen: The spleen demonstrates homogeneous attenuation and is not enlarged. 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 A bulky nonobstructing trilobed calcification within the lower pole of the right kidney measuring 8 m m. Well-circumscribed rounded foci of fluid attenuation within the bilateral kidneys, likely representin g cysts for which ultrasound may be performed for confirmation. Adrenal glands: Unremarkable. Gastrointestinal tract: Colonic diverticulosis without surrounding inflammatory change. Fecal stasis within the rectum. Appendix: The appendix is not definitively visualized. However, no pericecal inflammatory change is identified suggest the presence of acute appendicitis. Vasculature: Densely calcified atherosclerotic disease. Lymph nodes: Limited evaluation without intravenous contrast. Pelvic structures: The bladder is only minimally distended, and otherwise unremarkable. The prostate gland is enlarged and contains bulky calcifications. Body wall and musculoskeletal: Small fat-containing umbilical hernia. 30 degrees of levoscoliotic curvature of the lumbar spine is present. Age-appropriate degenerative disease. IMPRESSION: No obstructive uropathy. Trilobed nonobstructing calcification within the right kidney. Additional findings for which bilateral renal cysts are suspected and for which ultrasound may be per formed for confirmation. Reviewed, dictated and finalized at location A. IMPRESSION: No obstructive uropathy. Trilobed nonobstructing calcification within the right kidney. Additional findings for which bilateral renal cysts are suspected and for which ultrasound may be performed for confirmation.
--- OUTSIDE RECORDS SUMMARY | 2025-01-03 15:10 | XMS_ITS | Encounter Summary ---
Author Organization [facility] Address [address] [place] [address] Care Team Providers Care Ged Instructor Name Role Phone Ramos Carranza MD Primary Care Provider [phone] Encounter Details Date Type Department Care Team (Late st Contact Info) Description 05/12/2006 Outpatient Historical [facility] (Adt Cardiology-[facility]) [address] [place] [phone] Galileo Cardenas MD [address] [place] [address] Social History Tobacco Use Types Packs/Day Years Used Date Smoking Tobacco: Never Assessed Sex and Gender Information Value Date Recorded Sex Assigned at Not on file Legal Sex Male 4:30 AM EMERGENCY DEPARTMENT AIDE Gender Identity Not on file Sexual Orientation Not on file documented as of this encounter Plan of Treatment Not on file documented as of this encounter Visit Diagnoses Not on filedocumented in this encounter Care Teams Ged Instructor Relationship Specialty Start Date End Date Ramos Carranza MD [facility] [facility] [address] [place] [address] PCP - General Interventional Cardiology 03/01/17 documented as of this encounter
--- OUTSIDE RECORDS SUMMARY | 2025-01-03 15:10 | XMS_ITS | Clinical Summary ---
Author Organization [facility] Address [address] [place] [address] Phone Care Team Providers Care Lead Network Architect Name Role Phone Ramos Carranza MD Primary Care Provider [phone] Allergies No known active allergies Medications carbidopa-levod [...] Take 400 Units by mouth daily. 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 Gender Identity Not on file Sexual Orientation [...] 2024 06/01/2016 Medical Devices Implanted Type Area Fisheries Specialist Device Identifier Shelf Expiration Date Model / Serial / Lot Stent Polaris Ultra [id number] - [id number] Implanted:Qty : 1 on 03/11/2017 by Jhonny Diaz MD at [facility] Stent Right: Ureter [employer]- UROLOGY/CLIMATOLOGIST [id number] 12/18/2019 [id number] [place] [address] MEDICARE PART A AND B RX OPT[employer] RX Member Subscriber Plan / Payer (Ef fective 2006-Present) Name:PrestonLakshmi Relation to Subscriber:Self Name:Sri Johnstonkaia William Payer ID:Not on file Group ID:[id number] Type:RX Medicare Part D Address: [facility] Advance Directives For more information, please contact: [phone] * Full Code (Latest Code Status on File) Date Activated Date Inactivated Comments 03/11/2017 7:21 AM 03/11/2017 2:24 PM Care Teams Lead Network Architect Relationship Specialty Start Date End Date Ramos Carranza MD [address] [place] [address] PCP - General Interventional Cardiology 03/01/17
--- OUTSIDE RECORDS SUMMARY | 2025-01-03 15:10 | XMS_ITS | Encounter Summary ---
Author Organization [facility] Address [address] [place] [address] Care Team Providers Care Forklift Wheel Loader Name Role Phone Ramos Carranza MD Primary Care Provider [phone] Encounter Details Date Type Department Care Team (Latest Contact Info) Description 05/12/2006 Inpatient Historical [facility] [place] [address] [place] [address] Calculus of Kidney (Primary Dx) Social History Tobacco Use Types Packs/Day Years Used Date Smoking Tobacco: Never Assessed Sex and Gender Information Value Date Recorded Sex Assigned at Not on file Legal Sex Male 4:30 AM BENCH HAND MACHINE Gender Identity Not on file Sexual Orientation [...] Primary documented in this encounter Care Teams Forklift Wheel Loader Relationship Specialty Start Date End Date Ramos Carranza MD [address] [place] [address] [address] [place] [address] PCP - General Interventional Cardiology 03/01/17 documented as of this encounter
--- OUTSIDE RECORDS SUMMARY | 2025-01-03 15:10 | XMS_ITS | Clinical Summary ---
Author Organization [facility] Address [address] [facility] [place] [address] Care Team Providers Care Lab Associate Name Role Phone Damaso Barrow DO Primary Care Provider [phone] Source Comments [facility],non-owned Affiliates and Associated Physician Practices is amultiple site organization consisting of ambulatory clinics and hospital sitesin [place], [place] and [place]. This disclosure is being madepursuant to the Care Everywhere program and may not contain all information available regarding this patient. Last updated 18.[facility] Allergies No known active allergies Medications * Be aware that medications may not be up to date on this document. Alwaysverify current medications with the patient. fish oil/omega-3 fatty acids (FISH OIL) 1000 [...] before breakfast. 90 Cap 3 05/08/2010 Active carbidopa-levod opa (SINEMET) 25-100 MG tablet Take 1 Tab by mouth at bedtime. 90 Tab 3 05/08/2010 Active Active Problems Problem Noted Date Diagnosed Date HTN (hypertension), benign 05/14/2010 Hyperlipidemia 05/14/2010 Restless legs syndrome (RLS) 05/14/2010 Spinal stenosis 05/14/2010 Chronic low back pain 05/14/2010 Overview (07/07/2015): Immunizations Immunization Administration Dates Next Due PNEUMOCOCCAL PPSV23 12/07/2006 Social History Tobacco Use Types Packs/Day Years Used Date Smoking Tobacco: Never Alcohol Use Standard Drinks/Week Comments No 0 (1 standard drink = 0.6 oz pur e alcohol) Sex and Gender Information Value Date Recorded Sex Assigned at Not on file Legal Sex Male 8:24 AM PATTERN MAKER Gender Identity Not on file Sexual Orientation Not on file Last Filed Vital Signs Vital Sign Reading Time Taken Comments Blood Pressure 144/86 11/06/2010 11:31 AM PATTERN MAKER Pulse 64 11/06/2010 11:31 AM PATTERN MAKER Temperature 36.3 C (97.4 F) 11/07/2009 11:03 AM PATTERN MAKER Respiratory Rate 12 11/06/2010 11:31 AM PATTERN MAKER Oxygen Saturation - - Inhaled Oxygen Concentration - - Weight 95.3 kg (210 lb) 11/06/2010 11:31 AM PATTERN MAKER Height 180.3 cm (5' 11 ) 11/06/2010 11:31 AM PATTERN MAKER Body Mass Index 29.29 11/06/2010 11:31 AM PATTERN MAKER Plan of Treatment Health Maintenance Due Date Last Done Comments DTAP/TDAP/TD VACCINES (1 - Tdap) 1959 ZOSTER VACCINE (1 of 2) 02/20/1988 PNEUMOCOCCAL VACCINE 50+ (2 of 2 - PCV) 12/08/2007 12/07/2006 Respiratory Syncytial Virus (RSV) Vaccine Pt: or over 60 yrs (1 - 1-dose 75+ series) 2013 COVID-19 VACCINE ( - 2023-2 5 season) 2024 DEPRESSION SCREENING 08/30/2024 INFLUENZA VACCINE (Season Ended) 2025 HEPATITIS B VACCINE Aged Out No longe [...] age to complete this topic Care Teams Lab Associate Relationship Specialty Start Date End Date Damaso Barrow DO [address] [place] [address] PCP - General 11/07/09
== END 2025-01-03 15:05 | disposition home or self-care (01) ==
DX: R10.30 Lower abdominal pain, unspecified (principal); N20.0 Calculus of kidney
CPT/HCPCS: 74176

== ENCOUNTER 2025-02-02 15:36 | Outpatient (CLI) | payer MEDICARE, SELFPAY ==
--- NOTE | ~2025-02-02 | US_ITS ---
EXAMINATION: US soft tissue groin LT, US soft tissue groin RT DATE: 02/02/2025 18:12 (accession [id number]), 02/02/2025 18:13 (accession [id number]) INDICATION: INGUINAL PAIN, BILATERAL. TECHNIQUE: Grayscale and Doppler ultrasound images of the bilateral groins were obtained. COMPARISON: None. FINDINGS: The areas of pain were sonographically interrogated, revealing no solid or cystic mass. No significant changes noted with the Valsalva maneuver. No abnormal vascularity. Normal-appearing bilat eral inguinal lymph nodes. IMPRESSION: No sonographic abnormality detected in the bilateral inguinal canals. Reviewed, dictated and finalized at location K. IMPRESSION: No sonographic abnormality detected in the bilateral inguinal canals.
--- OUTSIDE RECORDS SUMMARY | 2025-02-02 15:41 | XMS_ITS | Clinical Summary ---
Author Organization [facility] Address [address] [place] [address] Phone Care Team Providers Care Semiconductor Development Technician Name Role Phone Ramos Carranza MD Primary Care Provider [phone] Allergies No known active allergies Medications carbidopa-levod [...] Take 400 Units by mouth daily. 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 Gender Identity Not on file Sexual Orientation [...] 6:10 AM CDT Height 180.3 cm (5' 11) 03/11/2017 6:10 AM CDT Body Mass Index [...] 2024 06/01/2016 Medical Devices Implanted Type Area Aviation Electronic Warfare Operator Device Identifier Shelf Expiration Date Model / Serial / Lot Stent Polaris Ultra [id number] - [id number] Implanted:Qty : 1 on 03/11/2017 by Jhonny Diaz MD at [facility] Stent Right: Ureter [employer]NER [id number] 12/18/2019 [id number] [place] [address] MEDICARE PART A AND B RX [employer] RX Member Subscriber Plan / Payer (Ef fective 2006-Present) Name:PrestonLakshmi Relation to Subscriber:Self Name:Sri Johnstonkaia William Payer ID:Not on file Group ID:[id number] Type:RX Medicare Part D Address: [facility] Advance Directives For more information, please contact: [phone] * Full Code (Latest Code Status on File) Date Activated Date Inactivated Comments 03/11/2017 7:21 AM 03/11/2017 2:24 PM Care Teams Semiconductor Development Technician Relationship Specialty Start Date End Date Ramos Carranza MD [address] [place] [address] PCP - General Interventional Cardiology 03/01/17
--- OUTSIDE RECORDS SUMMARY | 2025-02-02 15:41 | XMS_ITS | Patient Health Record ---
Author Organization [facility] Address [address] [place] [address] Care Team Providers Care Aquatic Habitat Biologist Name Role Phone Ramos Carranza Primary Care Provider Denver Keenan [phone] ALLERGIES No Known Allergies RESULTS Component Value Reference Range Notes X ray : Lumbar spine 5 views , AP, Lateral, Spot, Flexion and Extension Reviewed date:01/18/2025 12:54:20 PM Interpretation: Performing Lab: Notes/Report: X ray : Hip 2 views R, AP, L at with Pelvis Reviewed date:01/18/2025 12:54:13 PM Interpretation: Performing Lab: Notes/Report: REASON FOR REFERRAL No Information MEDICATIONS Medication SIG (Take, Route, Fr equency, Duration) Notes Start Date End Date Status metFORMIN HCl Active Carbidopa-Levodopa ER Active Carbidopa-Levodopa A ctive Spironolactone Activ e PROBLEMS Problem Type ICD Code Onset Dates Problem Status W/U Status Risk SNOMED Code Notes Problem 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) Active confirmed Osteoarthritis of hip (287838700) Problem Cervical radiculopathy (M54.12) Active confirmed Cervical radiculopathy (79265290) Problem PVD (peripheral vascular disease) (I73.9) Active confirmed Peripheral vascular disease (332759902) Problem Lumbar stenosis with neurogenic claudication (M48.062) Active confirmed Neurogenic claudication (953562142) Problem Lumbar radicular pain (M54.16) Active confirmed Lumbar radicul ar pain (1725351344) Problem 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) Active confirmed Localized, primary osteoarthritis of the pelvic region and thigh (736422518) Problem Unspecified atherosclerosis (I70.90) Active confirmed Atherosclerosis (43223764) VITAL SIGNS Height 69 in 01/18/2025 Weight 195 lbs 01/18/2025 BMI 28.79 kg/m2 01/18/2025 PROCEDURES Procedure Date Ordered Date Performed Result Body Sit e Joint Injection,Hip,Right 01/18/2025 01/18/2025 medicare/[facility] Encounters Encounter Location Date Provider Diagnosis [facility], [address] [place] [address] 01/18/2025 Denver Reymundo Hand numbness R20.0 ; PVD (peripheral vascular disease) I73.9 ; Lumbar radicular pain M54.16 ; Other low back pain M54.59 ; Degenerative joint disease of left hip M16.12 and Unspecified atherosclerosis I70.90 ASSESSMENTS Encounter Date Diagnosis Assessment Notes Treatment Notes Treatment Clinical Notes Section Notes 01/18/2025 Hand numbness (ICD-10 - R20.0) <b>IMPRESSION:</b> Back pain. Groin pain. Hip degenerative joint disease. Lumbar radiculopathy. Drop feet. Peripheral neuropathy. Atherosclerosis. Carpal tunnel disease. <b>PLAN:</b> It is my recommendation the patient undergo an MRI study through the lumbar spine to better visualize the degree of neural compression to the lumbar spine. He will undergo bilateral upper extremity EMG and NCS with Dr. Santiago. He will also undergo an arterial Doppler of the lower extremities to rule out vascular disease as the source of his complaints. It is my recommendation he undergo a right hip joint under fluoroscopy. NURSING HOME/cp <b>ADDENDUM:</b> The patient underwent a right hip injection joint under fluoroscopy. His daughter, Angelica Ferguson, informed me he did not obtain any satisfactory improvement in his complaints. The MRI study through the lumbar spine was performed on 01/18/2025 and reveals evidence of severe spinal stenosis at L4-5 with disc protrusion. At L5-S1 there is evidence of a disc protrusion with moderate spinal canal stenosis. There is extension of pathology at the L4-5 level on the right. The results of the MRI were discussed with his daughter. <b>RECOMMENDATIONS :</b> I recommend he undergo an L3-4 epidural steroid injection as it is unlikely radiology performing the injection will be able to enter the spinal canal at the L4-5 level. He will undergo his additional diagnostic studies. We will see him back in the office following completion of the additional diagnostic studies and make further recommendations at that time. NURSING HOME/cp 01/18/2025 PVD (peripheral vascular disease) (ICD-10 - I73.9) <b>IMPRESSION:</b> Back pain. Groin pain. Hip degenerative joint disease. Lumbar radiculopathy. Drop feet. Peripheral neuropathy. Atherosclerosis. Carpal tunnel disease. <b>PLAN:</b> It is my recommendation the patient undergo an MRI study through the lumbar spine to better visualize the degree of neural compression to the lumbar spine. He will undergo bilateral upper extremity EMG and NCS with Dr. Santiago. He will also undergo an arterial Doppler of the lower extremities to rule out vascular disease as the source of his complaints. It is my recommendation he undergo a right hip joint under fluoroscopy. NURSING HOME/cp <b>ADDENDUM:</b> The patient underwent a right hip injection joint under fluoroscopy. His daughter, Angelica Ferguson, informed me he did not obtain any satisfactory improvement in his complaints. The MRI study through the lumbar spine was performed on 01/18/2025 and reveals evidence of severe spinal stenosis at L4-5 with disc protrusion. At L5-S1 there is evidence of a disc protrusion with moderate spinal canal stenosis. There is extension of pathology at the L4-5 level on the right. The results of the MRI were discussed with his daughter. <b>RECOMMENDATIONS :</b> I recommend he undergo an L3-4 epidural steroid injection as it is unlikely radiology performing the injection will be able to enter the spinal canal at the L4-5 level. He will undergo his additional diagnostic studies. We will see him back in the office following completion of the additional diagnostic studies and make further recommendations at that time. NURSING HOME/cp 01/18/2025 Lumbar radicular pain (ICD-10 - M54.16) <b>IMPRESSION:</b> Back pain. Groin pain. Hip degenerative joint disease. Lumbar radiculopathy. Drop feet. Peripheral neuropathy. Atherosclerosis. Carpal tunnel disease. <b>PLAN:</b> It is my recommendation the patient undergo an MRI study through the lumbar spine to better visualize the degree of neural compression to the lumbar spine. He will undergo bilateral upper extremity EMG and NCS with Dr. Santiago. He will also undergo an arterial Doppler of the lower extremities to rule out vascular disease as the source of his complaints. It is my recommendation he undergo a right hip joint under fluoroscopy. NURSING HOME/cp <b>ADDENDUM:</b> The patient underwent a right hip injection joint under fluoroscopy. His daughter, Angelica Ferguson, informed me he did not obtain any satisfactory improvement in his complaints. The MRI study through the lumbar spine was performed on 01/18/2025 and reveals evidence of severe spinal stenosis at L4-5 with disc protrusion. At L5-S1 there is evidence of a disc protrusion with moderate spinal canal stenosis. There is extension of pathology at the L4-5 level on the right. The results of the MRI were discussed with his daughter. <b>RECOMMENDATIONS :</b> I recommend he undergo an L3-4 epidural steroid injection as it is unlikely radiology performing the injection will be able to enter the spinal canal at the L4-5 level. He will undergo his additional diagnostic studies. We will see him back in the office following completion of the additional diagnostic studies and make further recommendations at that time. NURSING HOME/cp 01/18/2025 Other low back pain (ICD-10 - M54.59) <b>IMPRESSION:</b> Back pain. Groin pain. Hip degenerative joint disease. Lumbar radiculopathy. Drop feet. Peripheral neuropathy. Atherosclerosis. Carpal tunnel disease. <b>PLAN:</b> It is my recommendation the patient undergo an MRI study through the lumbar spine to better visualize the degree of neural compression to the lumbar spine. He will undergo bilateral upper extremity EMG and NCS with Dr. Santiago. He will also undergo an arterial Doppler of the lower extremities to rule out vascular disease as the source of his complaints. It is my recommendation he undergo a right hip joint under fluoroscopy. NURSING HOME/cp <b>ADDENDUM:</b> The patient underwent a right hip injection joint under fluoroscopy. His daughter, Angelica Ferguson, informed me he did not obtain any satisfactory improvement in his complaints. The MRI study through the lumbar spine was performed on 01/18/2025 and reveals evidence of severe spinal stenosis at L4-5 with disc protrusion. At L5-S1 there is evidence of a disc protrusion with moderate spinal canal stenosis. There is extension of pathology at the L4-5 level on the right. The results of the MRI were discussed with his daughter. <b>RECOMMENDATIONS :</b> I recommend he undergo an L3-4 epidural steroid injection as it is unlikely radiology performing the injection will be able to enter the spinal canal at the L4-5 level. He will undergo his additional diagnostic studies. We will see him back in the office following completion of the additional diagnostic studies and make further recommendations at that time. NURSING HOME/cp 01/18/2025 Degenerative joint disease of left hip (ICD-10 - M16.12) <b>IMPRESSION:</b> Back pain. Groin pain. Hip degenerative joint disease. Lumbar radiculopathy. Drop feet. Peripheral neuropathy. Atherosclerosis. Carpal tunnel disease. <b>PLAN:</b> It is my recommendation the patient undergo an MRI study through the lumbar spine to better visualize the degree of neural compression to the lumbar spine. He will undergo bilateral upper extremity EMG and NCS with Dr. Santiago. He will also undergo an arterial Doppler of the lower extremities to rule out vascular disease as the source of his complaints. It is my recommendation he undergo a right hip joint under fluoroscopy. NURSING HOME/cp <b>ADDENDUM:</b> The patient underwent a right hip injection joint under fluoroscopy. His daughter, Angelica Ferguson, informed me he did not obtain any satisfactory improvement in his complaints. The MRI study through the lumbar spine was performed on 01/18/2025 and reveals evidence of severe spinal stenosis at L4-5 with disc protrusion. At L5-S1 there is evidence of a disc protrusion with moderate spinal canal stenosis. There is extension of pathology at the L4-5 level on the right. The results of the MRI were discussed with his daughter. <b>RECOMMENDATIONS :</b> I recommend he undergo an L3-4 epidural steroid injection as it is unlikely radiology performing the injection will be able to enter the spinal canal at the L4-5 level. He will undergo his additional diagnostic studies. We will see him back in the office following completion of the additional diagnostic studies and make further recommendations at that time. NURSING HOME/cp 01/18/2025 Unspecified atherosclerosis (ICD-10 - I70.90) <b>IMPRESSION:</b> Back pain. Groin pain. Hip degenerative joint disease. Lumbar radiculopathy. Drop feet. Peripheral neuropathy. Atherosclerosis. Carpal tunnel disease. <b>PLAN:</b> It is my recommendation the patient undergo an MRI study through the lumbar spine to better visualize the degree of neural compression to the lumbar spine. He will undergo bilateral upper extremity EMG and NCS with Dr. Santiago. He will also undergo an arterial Doppler of the lower extremities to rule out vascular disease as the source of his complaints. It is my recommendation he undergo a right hip joint under fluoroscopy. NURSING HOME/cp <b>ADDENDUM:</b> The patient underwent a right hip injection joint under fluoroscopy. His daughter, Angelica Ferguson, informed me he did not obtain any satisfactory improvement in his complaints. The MRI study through the lumbar spine was performed on 01/18/2025 and reveals evidence of severe spinal stenosis at L4-5 with disc protrusion. At L5-S1 there is evidence of a disc protrusion with moderate spinal canal stenosis. There is extension of pathology at the L4-5 level on the right. The results of the MRI were discussed with his daughter. <b>RECOMMENDATIONS :</b> I recommend he undergo an L3-4 epidural steroid injection as it is unlikely radiology performing the injection will be able to enter the spinal canal at the L4-5 level. He will undergo his additional diagnostic studies. We will see him back in the office following completion of the additional diagnostic studies and make further recommendations at that time. NURSING HOME/cp PLAN OF TREATMENT Pending Test Test Name Order Date MRI : Lumbar without contrast 01/18/2025 Ultrasound : Arterial Dopple r Study, Lower extremities, Bilateral with Exercise 01/18/2025 EMG, NCV, Bilateral, Upper Extremity, Co nsultative EDX & Evaluate Symptoms 01/18/2025 Insurance Providers Payer Name Payer Address Payer Phone Subscriber Number Group Number Insured Name Patient Relationship to Insured Coverage Start Date Coverage End Date Medicare [place] [address] [address] [place] [phone] [id number] Lakshmi Johnston Self - patient is the insured [employer] [id number] [place] [address] [place] [address] [id number] Lakshmi Johnston Self - patient is the insured MEDICAL (GENERAL) HISTORY Medical History History ICD Code Head injury 06/2024 Hypertension Diabetes Arthritis Back pain Numbness in R. hand & both feet Spinal stenosis BPH (nocturia x 3-4) Constipation Denies h/o emotional/psychiatric disorde r Denies h/o drug/chemical dependency Surgical History Surgery Date(Month/Year) Kidney stones
--- OUTSIDE RECORDS SUMMARY | 2025-02-02 15:41 | XMS_ITS | Clinical Summary ---
Author Organization [facility] Address [address] [place] [address] Care Team Providers Care President & Founder Name Role Phone Damaso Barrow DO Primary Care Provider [phone] Source Comments [facility],non-owned Affiliates and Associated Physician Practices is amultiple site organization consisting of ambulatory clinics and hospital sitesin [place], [place], [place] and [place]. This disclosure is being madepursuant to the Care Everywhere program and may not contain all information available regarding this patient. Last updated 18.[facility] Allergies No known active allergies Medications * [...] on file Legal Sex Male 8:24 AM JALOUSIES INSTALLER Gender Identity Not on file Sexual Orientation Not on file Last Filed Vital Signs Vital Sign Reading Time Taken Comments Blood Pressure 144/86 11/06/2010 11:31 AM JALOUSIES INSTALLER Pulse 64 11/06/2010 11:31 AM JALOUSIES INSTALLER Temperature 36.3 C (97.4 F) 11/07/2009 11:03 AM JALOUSIES INSTALLER Respiratory Rate 12 11/06/2010 11:31 AM JALOUSIES INSTALLER Oxygen Saturation - - Inhaled Oxygen Concentration - - Weight 95.3 kg (210 lb) 11/06/2010 11:31 AM JALOUSIES INSTALLER Height 180.3 cm (5' 11) 11/06/2010 11:31 AM JALOUSIES INSTALLER Body Mass Index 29.29 11/06/2010 11:31 AM JALOUSIES INSTALLER Plan of Treatment Health Maintenance Due Date [...] age to complete this topic Care Teams President & Founder Relationship Specialty Start Date End Date Damaso Barrow DO [address] [place] [address] PCP - General 11/07/09
--- OUTSIDE RECORDS SUMMARY | 2025-02-02 15:41 | XMS_ITS | Encounter Summary ---
Author Organization [facility] Address [address] [place] [address] Care Team Providers Care Senior Operations Analyst Name Role Phone Ramos Carranza MD Primary Care Provider [phone] Encounter Details Date Type Department Care Team (Latest Contact Info) Description 05/12/2006 Inpatient Historical [facility] [place] [address] [place] [address] Calculus of Kidney (Primary Dx) Social History Tobacco Use Types Packs/Day Years Used Date Smoking Tobacco: Never Assessed Sex and Gender Information Value Date Recorded Sex Assigned at Not on file Legal Sex Male 4:30 AM DATABASES COMPUTER CONSULTANT Gender Identity Not on file Sexual Orientation [...] Primary documented in this encounter Care Teams Senior Operations Analyst Relationship Specialty Start Date End Date Ramos Carranza MD [address] [place] [address] [address] [place] [address] PCP - General Interventional Cardiology 03/01/17 documented as of this encounter
--- OUTSIDE RECORDS SUMMARY | 2025-02-02 15:41 | XMS_ITS | Encounter Summary ---
Author Organization [facility] Address [address] [place] [address] Care Team Providers Care Laborer Sawmill Name Role Phone Ramos Carranza MD Primary Care Provider [phone] Encounter Details Date Type Department Care Team (Late st Contact Info) Description 05/12/2006 Outpatient Historical [facility] [employer] (Adt Cardiology[facility]) [address] [place] [address] Galileo Cardenas MD [address] [facility] [address] [facility] [address] [place] [address] Social History Tobacco Use Types Packs/Day Years Used Date Smoking Tobacco: Never Assessed Sex and Gender Information Value Date Recorded Sex Assigned at Not on file Legal Sex Male 4:30 AM WAREHOUSE ORDER FILLER Gender Identity Not on file Sexual Orientation Not on file documented as of this encounter Plan of Treatment Not on file documented as of this encounter Visit Diagnoses Not on filedocumented in this encounter Care Teams Laborer Sawmill Relationship Specialty Start Date End Date Ramos Carranza MD [facility] [facility] [address] [place] [address] PCP - General Interventional Cardiology 03/01/17 documented as of this encounter
--- OUTSIDE RECORDS SUMMARY | 2025-02-02 15:42 | XMS_ITS ---
Author Organization [facility], Address [address] [place] [address] Care Team Providers Care Retail Field Representative Name Role Phone Ramos Carranza Primary Care Provider Denver Keenan Unavailable [phone] ALLERGIES No Known Allergies RESULTS Component Value Reference Range Notes X ray : Lumbar spine 5 views , AP, Lateral, Spot, Flexion and Extension Reviewed date:01/18/2025 12:54:20 PM Interpretation: Performing Lab: Notes/Report: X ray : Hip 2 views R, AP, L at with Pelvis Reviewed date:01/18/2025 12:54:13 PM Interpretation: Performing Lab: Notes/Report: REASON FOR VISIT low back, groin MEDICATIONS Medication SIG (Take, Route, Fr equency, Duration) Notes Start Date End Date Status metFORMIN HCl Active Carbidopa-Levodopa ER Active Carbidopa-Levodopa A ctive Spironolactone Activ e PROBLEMS Problem Type ICD Code Onset Dates Problem Status W/U Status Risk SNOMED Code Notes Problem 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) Active confirmed Osteoarthritis of hip (233595465) Problem Cervical radiculopathy (M54.12) Active confirmed Cervical radiculopathy (97973508) Problem PVD (peripheral vascular disease) (I73.9) Active confirmed Peripheral vascular disease (251753031) Problem Lumbar stenosis with neurogenic claudication (M48.062) Active confirmed Neurogenic claudication (982505159) Problem Lumbar radicular pain (M54.16) Active confirmed Lumbar radicul ar pain (4313885696) Problem 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) Active confirmed Localized, primary osteoarthritis of the pelvic region and thigh (590796283) Problem Unspecified atherosclerosis (I70.90) Active confirmed Atherosclerosis (03546221) VITAL SIGNS BMI 28.79 kg/m2 01/18/2025 Height 69 in 01/18/2025 Weight 195 lbs 01/18/2025 PROCEDURES Procedure Date Ordered Date Performed Result Body Sit e Joint Injection,Hip,Right 01/18/2025 01/18/2025 medicare/[facility] Encounters Encounter Location Date Provider Diagnosis [facility], [address] [place] [address] 01/18/2025 Denver Reymundo Hand numbness R20.0 ; [...] undergo a right hip joint under fluoroscopy. HALFWAY/cp <b>ADDENDUM:</b> The patient underwent a right hip [...] and make further recommendations at that time. HALFWAY/cp 01/18/2025 PVD (peripheral vascular disease) (ICD-10 - [...] undergo a right hip joint under fluoroscopy. HALFWAY/cp <b>ADDENDUM:</b> The patient underwent a right hip [...] and make further recommendations at that time. HALFWAY/cp 01/18/2025 Lumbar radicular pain (ICD-10 - M54.16) [...] undergo a right hip joint under fluoroscopy. HALFWAY/cp <b>ADDENDUM:</b> The patient underwent a right hip [...] and make further recommendations at that time. HALFWAY/cp 01/18/2025 Other low back pain (ICD-10 - [...] undergo a right hip joint under fluoroscopy. HALFWAY/cp <b>ADDENDUM:</b> The patient underwent a right hip [...] and make further recommendations at that time. HALFWAY/cp 01/18/2025 Degenerative joint disease of left hip [...] undergo a right hip joint under fluoroscopy. HALFWAY/cp <b>ADDENDUM:</b> The patient underwent a right hip [...] and make further recommendations at that time. HALFWAY/cp 01/18/2025 Unspecified atherosclerosis (ICD-10 - I70.90) <b>IMPRESSION:</b> [...] undergo a right hip joint under fluoroscopy. HALFWAY/cp <b>ADDENDUM:</b> The patient underwent a right hip [...] and make further recommendations at that time. HALFWAY/cp PLAN OF TREATMENT Pending Test Test Name Order Date MRI : Lumbar without contrast 01/18/2025 Ultrasound : Arterial Dopple r Study, Lower extremities, Bilateral with Exercise 01/18/2025 EMG, NCV, Bilateral, Upper Extremity, Co nsultative EDX & Evaluate Symptoms 01/18/2025 Progress Notes * Examination Category Sub-Category Detail Notes Category Not es General Examination GENERAL: Patient is a n alert and cooperative male who moves about the room in a cautious fashion. He does not walk with an obvious list or limp NECK: Exam reveals moderat e kyphosis. ROM of the cervical spine is reduced in extension. Spurling's test negative HEART: Regular rate and rhy thm LUNGS: Clear to auscultatio n in all whittaker ABDOMEN: No tenderness to pal pation, bowel sounds present all four quadrants NEUROLOGIC: Upper extremity neur ologic examination reveals symmetric DTR's, intact sensation, 5+/5+ motor strength. Positive Tinel's sign involving the right wrist greater than the left. Lisa's sign negative. Lower extremity neurologic examination reveals decreased sensation globally in the feet and the distal third of the calves bilaterally. Left EHL and anterior tibialis weakness at 4+/5+. Decreased sensation involving the left lateral calf, left foot dorsiflexor strength is 4+. Reflexes are 2+. SLR testing negative. No clonus, negative Babinski's sign involving the lower extremities SKIN: No evidence of skin rashes or dermal lesions MUSCULOSKELETAL: Thoracic exam reveal s no tenderness to palpation. No spasm. Lumbar exam reveals tension, but no tenderness to palpation. No scar. ROM of the lumbar spine reveals forward flexion to 90 degrees, extension to 25 degrees, side-bending to 35 degrees. He cannot heel walk and it reveals right extensor lag PSYCHIATRIC: Mood and affect appe ar normal HEENT: No masses, PERRLA, E OM intact, no nasal drainage, no lymphadenopathy JOINTS: Hip internal rotatio n is diminished bilaterally, but FABERE test is negative. Log roll testing does not elicit right groin pain VASCULAR: The patient also com plains of coldness in the hands and on examination the patient is noted to have evidence of bilateral hand coldness with decreased capillary refill. Pulses involving the bilateral lower extremities is 2+ HEMATOLOGIC: No evidence of exces sive bruising or bleeding CT Scan Imaging Studies CT LUMBAR SPINE: CT stud y through the lumbar spine performed at [facility] on 01/03/2025 reveals evidence of severe stenosis L4-5. Moderate stenosis at L5-S1. 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 Diminished disc space height of all levels. Facet degeneration of all levels. Spondylosis of all levels. No fracture HIP X-RAYS: Two views view x-ray s through the hips and pelvis reveal evidence of well-preserved hip joint space. No evidence of AVN. There is evidence of lateral calcifications along the lateral margin of the acetabulum. Right SI degeneration History and Physical Notes * HPI (History of Present Illness) Category Sub-Category Detail Notes Category Not es ------ Lakshmi Johnston is an 84-year-old male accompanied by his daughter, Angelica Ferguson, who presents for evaluation today, 01/18/2025. He presents with a multitude of complaints to include numbness in the feet, diminished capacity to ambulate, right groin pain and weakness involving the right foot. The patient reports his symptoms are described as severe, sharp pain. His complaints have been present for up to 6 months. Symptoms are worsened with standing, walking, coughing, sneezing, bending and tend to be improved with lying down resting. There has been no loss of bowel or bladder function. He can barely walk a block before symptoms increase in severity, force him to stop, sit and rest
== END 2025-02-02 15:37 | disposition home or self-care (01) ==
DX: R10.30 Lower abdominal pain, unspecified (principal); M79.651 Pain in right thigh
CPT/HCPCS: 76882